=== PATIENT | female | born 1960 | race Caucasian/White ===

== ENCOUNTER 2023-12-13 11:02 | Emergency (ER) | payer SELFPAY ==
--- NOTE | 2023-12-13 11:04 | ED.NAVMDI ---
HPI - Nausea/Vomiting/Diarrhea General Chief complaint: Nausea/Vomiting/Diarrhea Stated complaint: trouble eating,back hurts,throwing up Time Seen by Provider: 12/13/23 11:04 Source: patient Mode of arrival: ambulatory Limitations: no limitations History of Present Illness HPI Narrative: Mei is a 63-year-old female patient presenting to the clinic today with complaints of nausea, vomiting, globus sensation, and low back pain x4 days. She reports she has had about a 20 lb weight loss within the last 3 weeks. Denies any blood in her stool or in her vomit. Denies any abdominal pain. She is a current smoker. History of hypertension and high cholesterol. Is able to tolerate liquids but cannot tolerate solid foods. Emesis has a lot of mucus in it per patient. Related Data Home Medications Medication Instructions Recorded Confirmed amlodipine 10 mg tablet 10 mg PO DAILY 12/13/23 12/13/23 atorvastatin 10 mg tablet 10 mg PO DAILY 12/13/23 12/13/23 losartan 100 mg tablet 100 mg PO DAILY 12/13/23 12/13/23 Allergies Allergy/AdvReac Type Severity Reaction Status Date / Time Penicillins Allergy Unknown Verified 12/13/23 11:23 sertraline [From Zoloft] Allergy Other Verified 12/13/23 11:23 Review of Systems Review of Systems: Pertinent positives per HPI. Patient denies any fever, chills, rash, headache, visual changes, dizziness, cough, runny nose, sore throat, shortness of breath, chest pain, palpitations, nausea, vomiting, diarrhea, constipation, abdominal pain, or any urinary issues. PMFSH Comments At the time of my signature, I reviewed and agree with the nursing past medical, surgical, social, and family history. There is no relevant family history pertinent to the patient complaint. Exam Narrative: General: Well-developed, well nourished, in no apparent distress Head: Normocephalic, atraumatic Mouth: Oropharynx without lesions or masses, MM dry. Neck: Supple, trachea midline, no enlargement of anterior or posterior cervical nodes, no thyroid masses or goiter palpable. Cardio: Regular rate and rhythm, s1 and s2 normal, no murmur appreciated. Resp: Clear to auscultation bilaterally anteriorly and posteriorly, no rhonchi, rales, wheezing or rubs Abdomen: Soft, pliable, bowel sounds present in all quadrants, non-tender to palpation, no organomegly, no CVAT tenderness. Course Course Emergency Course: Portions of this record may have been created with voice recognition software. Level of Care: Express Care Visit Vital Signs Vital signs: Vital signs reviewed Transfer Transfered to: [facility] Transportation: Other (Private car) Transfer rationale: Globus sensation, unintentional weight loss, nausea/vomiting Accepting physician: Dr. Lane Transfer comments: Private car MDM - Nausea/Vomiting/Diarrhea MDM Narrative Medical decision making narrative: At the time of visit patient is resting comfortably on the exam table. Patient appears to be nontoxic. Plan: Due to patient's symptomatology recommend transfer to the ER for further evaluation for labs and CT scan. Patient agreeable to go to the emergency room. Patient would like to be transfer to [facility]. Contacted Dr. Lane at [facility] and she accepts patient for transfer. Patient to be transferred via private car. Differential Diagnosis Differential diagnosis: Likely gastroenteritis, dehydration and other (GERD, Barrettes esophagus, H pylori infection, gastritis, peptic ulcer, gastrointestinal mass with mets) Discharge Plan Discharge Clinical Impression: Globus sensation, Acute nausea with nonbilious vomiting, Unintentional weight loss Patient Disposition: Acute Care Hospital Condition: Stable Prescriptions: No Action atorvastatin 10 mg tablet 10 mg PO DAILY amlodipine 10 mg tablet 10 mg PO DAILY losartan 100 mg tablet 100 mg PO DAILY Follow-up/Referrals: PHYSICIAN,CHANNEL ACCOUNT MANAGER [Primary Care Provider] -
[2023-12-13 11:14] VITALS: BP 131/87; PULSE 77; RESP 16; TEMP 36.8; O2SAT 99
[2023-12-13 11:24] VITALS: BP 131/87; PULSE 77; RESP 16; TEMP 36.8; O2SAT 99
== END 2023-12-13 11:25 | disposition short-term general hospital (02) ==
PROVIDERS: Emergency Provider Nurse Practitioner Family
DX: R09.A2 Foreign body sensation, throat (principal); R11.2 Nausea with vomiting, unspecified; R63.4 Abnormal weight loss; M54.50 Low back pain, unspecified; E78.00 Pure hypercholesterolemia, unspecified; I10 Essential (primary) hypertension
CPT/HCPCS: 99212; G0463

== ENCOUNTER 2023-12-13 11:41 | Emergency (ER) | payer SELFPAY ==
[2023-12-13 11:53] VITALS: BP 120/65; PULSE 77; RESP 16; TEMP 36.4; O2SAT 100
--- NOTE | 2023-12-13 13:35 | PC.NURSE ---
pt stated I am not critical, i can be seen here later ambulated with out of dept
== END 2023-12-13 14:04 | disposition left against medical advice (07) ==
LOC: ANHED 13:52
DX: R13.10 Dysphagia, unspecified (principal)
CPT/HCPCS: 99199

== ENCOUNTER 2023-12-15 11:30 | Observation (INO) | payer SELFPAY ==
[2023-12-15] VITALS (22 sets, daily range): BP systolic 93–135; BP diastolic 54–87; PULSE 61–80; RESP 13–20; TEMP 36.2–36.6; O2SAT 95–100; BMI 19.8
--- NOTE | ~2023-12-15 | CT_ITS ---
EXAMINATION: CT chest abdomen pelvis w con DATE: 12/15/2023 16:57 INDICATION: Lymphoma . TECHNIQUE: Computed tomography (CT) of the chest, abdomen, and pelvis was performed with 100 mL Omnip aque-350 intravenous contrast. Automated exposure control and iterative reconstruction technique were employed. The dose-length product was 316.29 mGy-cm. COMPARISON: CT L-spine, same date FINDINGS: CHEST: Thoracic aorta: No significant dilation. No dissection. Mild arch calcification. Lung parenchyma and airways: 2.3 x 1.2 cm lobulated and spiculated pleural-based nodule in the right upper lobe with mild pleural retraction. 9 mm spiculated nodule along a bronchovascular plane in the right upper lobe. Lungs and airways otherwise clear. Thoracic inlet, axillae and chest wall: No thyroid mass. Enlarged lymph nodes at the inferior neck an d thoracic inlet. Patulous esophagus. Moderate hiatal hernia. Mediastinum: Bulky enlarged mediastinal and hilar lymph nodes. Heart and pericardium: Moderate volume pericardial fluid. Mitral annulus and aortic valve calcificati on. Coronary artery calcifications: Mild. Pleura: No effusion or mass. Thoracic bones: No acute osseous finding in the chest. ABDOMEN/PELVIS: Liver: Enlarged. 8 mm hypodensity in the right liver lobe. Biliary/Gallbladder: Gallbladder is normal. No bile duct dilation. Pancreas: No mass or duct dilation. Spleen: Enlarged Adrenals:9 mm indeterminate density right adrenal nodule. Normal left adrenal. Kidneys: No suspicious mass, obstructing stone, or hydronephrosis. GI tract: Mild distal esophageal and gastric wall edema. No small or large bowel dilation. Normal ti endix. Mesentery/Peritoneum: Enlarged mesenteric nodes. No ascites, mass, or free air. Retroperitoneum: Bulky enlarged retroperitoneal lymph nodes. Atherosclerotic abdominal aortic and/or arterial calcifications. Pelvis: Pelvic organs are within normal limits Soft Tissues: Soft tissues and body wall unremarkable. Abdominopelvic bones: No acute osseous finding in the abdomen/pelvis. IMPRESSION: Lower neck lymphadenopathy. Site in the left lower neck may be amenable to ultrasound-guided percutan eous biopsy. 2.3 x 1.2 cm pleural-based right upper lobe nodule which may be amenable to percutaneous CT guided bi opsy, but could be shielded by the scapula. An additional 9 mm spiculated central lesion is noted in the right upper lobe which may represent scar, a synchronous lesion, or metastatic disease. Mediastinal and bilateral hilar lymphadenopathy. Moderate pericardial effusion. Mild esophagitis/gastritis. Hepatosplenomegaly. 8mm hypodensity in the right liver lobe. 9 mm indeterminate right adrenal lesion. Mesenteric and retroperitoneal lymphadenopathy. Reviewed, dictated and finalized at location K. IMPRESSION: Lower neck lymphadenopathy. Site in the left lower neck may be amenable to ultr asound-guided percutaneous biopsy. 2.3 x 1.2 cm pleural-based right upper lobe nodule which may be amenable to per cutaneous CT guided biopsy, but could be shielded by the scapula. An additional 9 mm spiculated central lesion is noted in the right upper lobe which may repr esent scar, a synchronous lesion, or metastatic disease. Mediastinal and bilateral hilar lymphadenopathy. Moderate pericardial effusion. Mild esophagitis/gastritis. Hepatosplenomegaly. 8mm hypodensity in the right liver lobe. 9 mm indeterminate right adrenal lesion. Mesenteric and retroperitoneal lymphadenopathy.
--- NOTE | ~2023-12-15 | US_ITS ---
EXAMINATION: US biopsy lymph node DATE: 12/16/2023 10:32 INDICATION: Left supraclavicular lymphadenopathy. TECHNIQUE: The procedure including the risks, benefits, and alternatives was discussed with the patie nt. Risks discussed included bleeding and infection. The patient understood the risks and agreed to p roceed. The skin overlying the left neck was prepped and draped in usual sterile fashion. Anesthetic was administered with 1% lidocaine subcutaneously. An 18 gauge core biopsy needle was then used to obtain 6 core biopsy specimens under continuous sonographic guidance. The entry site was cleaned and dressed. There were no immediate complications. FINDINGS: Ultrasound images demonstrate the needle in an enlarged left supraclavicular lymph node. IMPRESSION: 1. Ultrasound-guided core needle biopsy of an enlarged left supraclavicular lymph node. Reviewed, dictated and finalized at location A. IMPRESSION: 1. Ultrasound-guided core needle biopsy of an enlarged left supraclavicular lym ph node.
--- NOTE | ~2023-12-15 | CT_ITS ---
EXAMINATION: CT lumbar spine wo con DATE: 12/15/2023 15:15 INDICATION: Central low back pain TECHNIQUE: Computed tomography (CT) of the lumbar spine was performed without intravenous contrast. A utomated exposure control and iterative reconstruction technique were employed. The dose-length produ ct was 234.54 mGy-cm. COMPARISON: None FINDINGS: 7 likely lumbar dextrocurvature. Sagittal alignment is normal. Vertebral body heights are normal. No fracture. Severe disc height loss at L5-S1. Disc heights are normal. Moderate bilateral sacroiliac os teoarthritis with anatomic variant nonfused bilateral sacral accessory apophyseal centers on the ante rior margin of the bilateral sacroiliac joints. Prominent aortocaval and left para-aortic lymphadenop athy which extends cephalad beyond the wellington of the diaphragm into the inferior mediastinum. For refer ence, one of the infrarenal left para-aortic lymph nodes measures up to 3.3 x 2.2 cm. The following d isc levels are specifically discussed: T11-T12: There is mild left and moderate right facet joint osteoarthritis. There is no neural foramin al stenosis. There is no central canal stenosis. T12-L1: There is mild bilateral facet joint osteoarthritis. There is no neural foraminal stenosis. Th ere is no central canal stenosis. L1-L2: Disc is mildly bulging. There is bilateral facet joint osteoarthritis. There is no neural fora esteban stenosis. There is mild central canal stenosis. L2-L3: Disc is bulging. There is mild bilateral facet joint osteoarthritis. There is mild bilateral n eural foraminal stenosis. There is mild central canal stenosis. L3-L4: Disc is bulging. There is mild bilateral facet joint osteoarthritis. There is mild bilateral n eural foraminal stenosis. There is mild central canal stenosis. L4-L5: Disc is bulging. There is hypertrophy of the ligamentum flavum. There is moderate right and se carmella left facet joint osteoarthritis. There is mild to moderate bilateral neural foraminal stenosis. There is moderate central canal stenosis. L5-S1: Disc is bulging. There is severe bilateral facet joint osteoarthritis. There is moderate bilat eral neural foraminal stenosis. There is no central canal stenosis. IMPRESSION: 1. Bulky or abdominal retroperitoneal lymphadenopathy concerning for lymphoma or other metastatic dis ease. Recommend further evaluation with contrast-enhanced CT of the chest, abdomen and pelvis to asse ss for extent lymphadenopathy and for biopsy planning. 2. Severe lumbosacral and mild lumbar and lower thoracic spondylosis. Reviewed, dictated and finalized at location A. IMPRESSION: 1. Bulky or abdominal retroperitoneal lymphadenopathy concerning for lymphoma o r other metastatic disease. Recommend further evaluation with contrast-enhanced CT of the chest, abdomen and pelvis to assess for extent lymphadenopathy and f or biopsy planning. 2. Severe lumbosacral and mild lumbar and lower thoracic spondylosis.
[2023-12-15 14:08] LABS: Basophils Absolute Auto 0.1 K/mm3 (0.0-0.1); Eosinophils Absolute Auto 0.2 K/mm3 (0-0.3); Eosinophils Percent Auto 2.4 % (0-4.4); Hematocrit 34.6 % (37.0-47.0); Hemoglobin 11.1 g/dL (12.0-15.0); Immature Granulocyte Absolute 0.03 K/mm3 (0.00-0.031); Immature Granulocyte Percent A 0.4 % (0-0.5); Lymphocytes Absolute Auto 0.84 K/mm3 (0.9-3.2); Lymphocytes Percent Auto 10.7 % (18.3-44.2); Mean Corpuscular HGB Conc 32.1 g/dl (32-36); Mean Corpuscular Hemoglobin 26.1 pg (26-34); Mean Corpuscular Volume 81.4 fl (80-100); Mean Platelet Volume 10.3 fl (7.4-10.4); Monocytes Absolute Auto 0.7 K/mm3 (0.1-0.6); Monocytes Percent Auto 8.6 % (2.6-8.5); Neutrophils Percent Auto 76.9 % (45.5-73.1); Platelet Count Result 280 k/mm3 (150-375); Red Blood Count 4.25 M/mm3 (4.2-5.4); Red Cell Distribution Width 14.1 % (11.5-14.5); White Blood Count 7.8 K/mm3 (4.5-10.0)
[2023-12-15 14:13] LABS: Add Urine Microscopic? NO; Appearance Urine Clear (Clear); Bilirubin Urine Negative (Negative); Blood Urine Negative (Negative); Color Urine Yellow (Yellow); Glucose Urine UA Negative (Negative); Ketones Urine Negative (Negative); Leukocyte Esterase Ur Negative LEU/UL (Negative); Nitrate Urine Negative (Negative); Protein Urine Negative (Negative); Urobilinogen Urine 0.2 mg/dL (<2.0)
[2023-12-15 14:31] LABS: Alanine Aminotransferase 15 U/L (6-35); Albumin Level 4.1 g/dL (3.5-5.1); Alkaline Phosphatase 108 U/L (38-126); Anion Gap 13 mmol/L (4-12); Aspartate Amino Transferase 27 U/L (14-36); Bilirubin,Total 0.4 mg/dL (0.2-1.3); Blood Urea Nitrogen 8 mg/dL (7-17); Calcium 8.9 mg/dL (8.4-10.2); Carbon Dioxide 23 mmol/L (22-30); Chloride 99 mmol/L (98-107); Estimated CRCL calculation 67 ml/min; Estimated Glomerular Filt Rate > 60; Glucose 127 mg/dL (65-110); Lipase 109 U/L (23-300); Potassium 3.9 mmol/L (3.4-5.0); Sodium 135 mmol/L (137-145)
[2023-12-15] MEDS: ACETAMINOPHEN 500 MG TABLET 1000 MG PO (15:16)
[2023-12-15] MEDS: KETOROLAC 15 MG/ML VIAL (*BKC) IV PUSH (15:17)
[2023-12-15] MEDS: diazePAM INJ (*CRX) 10 MG/2 ML SYRINGE 5 MG IV PUSH (15:17)
[2023-12-15] MEDS: LIDOCAINE 5% PATCH 1 PATCH TRANSDERM (15:17)
--- NOTE | 2023-12-15 18:12 | ED.GENADULT ---
HPI - General Adult General Chief complaint: Nausea/Vomiting/Diarrhea Stated complaint: nausea and back pain x 6 days Time Seen by Provider: 12/15/23 13:36 History of Present Illness HPI narrative: This is a 63-year-old female presenting ED chief complaint of difficulty swallowing and back pain. Starting 6 days ago she developed difficulty swallowing solids. This associated with nausea and vomiting. She has switched to liquid diet which has improved her symptoms. At the same time she developed achy lower back pain. It is worse with movement. It does not radiate. She has no history of chronic back pain. No history of cancer. No lower extremity weakness, urinary retention, bowel incontinence. Patient has noted recent unintentional weight loss. Related Data Home Medications Medication Instructions Recorded Confirmed amlodipine 10 mg tablet 10 mg PO DAILY 12/13/23 12/13/23 atorvastatin 10 mg tablet 10 mg PO DAILY 12/13/23 12/13/23 losartan 100 mg tablet 100 mg PO DAILY 12/13/23 12/13/23 Allergies Allergy/AdvReac Type Severity Reaction Status Date / Time Penicillins Allergy Unknown Verified 12/15/23 11:36 sertraline [From Zoloft] Allergy Other Verified 12/15/23 11:36 Exam Narrative: APPEARANCE: No apparent distress. Head: atraumatic. EYES: EOMI, NOSE: Atraumatic NECK: Trachea midline, left lower neck mass RESPIRATORY: No increased rate of breathing CTAB CARDIOVASCULAR: RRR, ABDOMINAL: Non-distended soft nontender MUSCULOSKELETAl: No obvious deformities, no midline back pain NEURO: Alert. Cranial nerves 2-12 grossly intact. Sensation light touch, motor function cerebellar function intact for 4 extremities. Gait exam was normal. SKIN:: Warm, dry. Normal color PSYCHIATRIC: Normal affect Course Vital Signs Vital signs: Vital Signs Temperature 97.7 F 12/15/23 11:32 Pulse Rate 80 12/15/23 11:32 Respiratory Rate 16 12/15/23 11:32 Blood Pressure 121/78 12/15/23 11:32 Pulse Oximetry 100 12/15/23 11:32 Oxygen Delivery Room Air 12/15/23 11:32 Temperature 97.9 F 12/15/23 18:01 Pulse Rate 66 12/15/23 18:17 Respiratory Rate 16 12/15/23 18:17 Blood Pressure 125/69 12/15/23 18:17 Pulse Oximetry 98 12/15/23 18:17 Oxygen Delivery Room Air 12/15/23 11:32 Medical Decision Making MDM Narrative Medical decision making narrative: -Course: 63-year-old female presenting with difficulty swallowing and lower back pain. CT of the L-spine was concerning for enlarged lymph nodes. CT chest abdomen pelvis showed multiple areas of lymphadenopathy which be amenable to IR biopsy. Patient be admitted to the hospital for further workup. -DDX includes but is not limited to: Lower back strain, neoplasm, esophageal dysmotility, viral syndrome -Independent interpretation of studies: Labs reviewed. Lower neck lymphadenopathy. Site in the left lower neck may be amenable to ultrasound-guided percutaneous biopsy. 2.3 x 1.2 cm pleural-based right upper lobe nodule which may be amenable to percutaneous CT guided biopsy, but could be shielded by the scapula. An additional 9 mm spiculated central lesion is noted in the right upper lobe which may represent scar, a synchronous lesion, or metastatic disease. Mediastinal and bilateral hilar lymphadenopathy. Moderate pericardial effusion. Mild esophagitis/gastritis. Hepatosplenomegaly. 8mm hypodensity in the right liver lobe. 9 mm indeterminate right adrenal lesion. Mesenteric and retroperitoneal lymphadenopathy. -Discussion of Management/Consultants: Deann -Interventions: Valium, lidocaine, Toradol, Tylenol -Shared decision making / Disposition: Observation Vital Signs Vital Signs: Vital Signs Temperature 97.7 F 12/15/23 11:32 Pulse Rate 80 12/15/23 11:32 Respiratory Rate 16 12/15/23 11:32 Blood Pressure 121/78 12/15/23 11:32 Pulse Oximetry 100 12/15/23 11:32 Oxygen Delivery Room Air 12/15/23 11:32 Temperatu
--- NOTE | 2023-12-15 20:05 | ADMGEN ---
This patient, Mei Carter, was admitted to Medical Room 349-01. Patient/family oriented to hospital policies and general routines including ID bracelet, bed and alarms, visiting hours, pain management, procedures, bathroom and other care routines, personal items, smoking policy, room service/diet, and visiting hours. Information on how to activate the Rapid Response Team has been discussed. Patient/Family are encouraged to report perceived risks to care and to ask questions if they do not understand what they are told or what they should do.
--- NOTE | 2023-12-15 20:35 | PM.IMHP ---
H&P: HPI History of Present Illness Date/Time: 12/15/23 20:35 Chief Complaint: Nausea, vomiting, back pain. Narrative: This is a 63-year-old female smoker with hypertension and hyperlipidemia who presented to the emergency department via private vehicle for evaluation of nausea, vomiting, and back pain. The patient provides the following history. Over the last 3 weeks or so she has been having difficulties swallowing, mainly solid foods which she feels like her getting stuck in her throat. With almost any solid food she vomits almost immediately. She is able to swallow liquids and most soft foods however. She has occasional nausea and has lost about 25 lb in the last 3 to 4 weeks. Additionally she has been having a deep aching pain in the mid low back. She was seen at urgent care 2 days ago for the symptoms and was referred to the ED however the wait was long so she went home. She returned today due to ongoing symptoms. With further questioning she mentions having heartburn for many years but has not suffered with that for at least 5 years. She has never had an endoscopy or colonoscopy. She has not noticed any dark stools or bright red blood in the stools. She has not had any falls or injuries. She also denies fever, chills, sweats, chest pain, pleuritic pain, cough, shortness of breath, abdominal pain, hematemesis, dysuria, and hematuria. In the ED: She was afebrile on arrival with stable vital signs. Labs are significant for WBC count of 7.8, hemoglobin 11.1, sodium 135, total protein 9.0, albumin 4.1. Urinalysis was unremarkable. Lumbar spine CT showed bulky or abdominal retroperitoneal lymphadenopathy and severe lumbosacral and mild lumbar and lower thoracic spondylosis. Subsequent CT of the chest, abdomen, and pelvis showed lower neck lymphadenopathy, 2.3 x 1.2 cm pleural based right upper lobe nodule, 9 mm spiculated central lesion in the right upper lobe, mediastinal bilateral hilar lymphadenopathy, moderate pericardial effusion, mild esophagitis/gastritis, hepatosplenomegaly, mesenteric and retroperitoneal lymphadenopathy, 8 mm hypodensity in the right liver lobe, 9 mm indeterminate right adrenal lesion. She is being admitted in this setting for further workup. Review of Systems Review of Systems: 12 systems were reviewed and are negative except for as per HPI. [facility] Past Medical History Medical History (Updated 12/15/23 @ 23:38 by Selena Stephens PA-C) Depression with anxiety Hyperlipidemia Hypertension Tobacco dependence Surgical History Surgical History (Updated 12/15/23 @ 20:43 by Selena Stephens PA-C) History of surgical removal of ganglion cyst Left wrist. Family History Family History Unknown Hypertension Father Diabetes mellitus Mother Diabetes mellitus Kidney failure Sibling Diabetes mellitus Social History Social History (Updated 12/15/23 @ 20:44 by Selena Stephens PA-C) Social History: Surrogate medical decision maker: Lavellsully Carter, spouse. Code status: Full code. Smoking packs per day: 1 Smoking cigarettes per day: 20.0 Years smoked: 40 Smoking pack-years: 40.00 Smoking status: Current every day smoker Tobacco type: cigarettes Alcohol intake: current Drinks per week: 5 Substance use type: does not use Do You Feel Safe in your Home?: Yes Lack of Transportation: No Lack of Food: Never True Current Housing: I Do Not Have Housing Concerned About Future Housing: No Difficulty Paying Gas/Electric Bills: No Difficulty Paying for Meds: No Currently Unemployed: No Education: High School Diploma/GED Difficulty w/ Childcare or Family Care: No Spiritual care concerns: No Meds Home Medications and Allergies Home Medications Medication Instructions Recorded Confirmed Type amlodipine 10 mg tablet 10 mg PO HS 12/13/23 12/15/23 History atorvastatin 10 mg tablet 10 mg PO 12/13/23
[2023-12-15] MEDS: LACTATED RINGERS 1,000 ML 75 ML IV CONT (21:28)
[2023-12-15] MEDS: ATORVASTATIN 10 MG TABLET PO (21:29)
[2023-12-15] MEDS: amLODIPine BESYLATE 10 MG TABLET PO (21:29)
[2023-12-15] MEDS: HYDROcodone/acetaminophen (*CRX) 5-325 MG TABLET 1 TAB PO (21:31)
[2023-12-15 21:50] LABS: Mean Platelet Volume 10.1 fl (7.4-10.4); Platelet Count Result 255 k/mm3 (150-375)
[2023-12-15 22:02] LABS: INR 1.1; Partial Thromboplastin Time 33.7 Seconds (22.3-36.8); Prothrombin Time 14.8 Seconds (11.1-14.7)
--- NOTE | 2023-12-16 | ECHO_ITS ---
Patient Info Name: Mei Carter Age: 63 years : 1960 Gender: Female Ht: 68 in Wt: 130 lbs BSA: 1.68 m2 HR: 62 bpm BP: 109 / 70 mmHg Technical Quality: Fair Exam Date: 12/16/2023 11:35 AM Exam Location: Echo Lab Patient Status: Inpatient Admit Date: 12/15/2023 Staff Ordering Physician: Cait Gaffney APRN Cardiology Fellow: Renetta Mccauley RDCS Attending Provider: Mark Liu MD Referring Physician: Gulshan RUIZ; Exam Type: CA echo doppler color flow Study Info Indications I31.3 - Pericardial effusion (noninflammatory) Complete two-dimensional, color flow and Doppler transthoracic echocardiogram is performed. Summary 1. Left ventricular chamber dimension is normal. 2. Left ventricular systolic function is normal, estimated at 65-70%. 3. The left ventricular diastolic function is grade I diastolic dysfunction. 4. Right ventricular systolic function is normal. 5. Left atrial chamber dimension is mildly enlarged. 6. There is moderate aortic valve calcification. 7. There is mild aortic valve stenosis. 8. There is mild aortic valve regurgitation. 9. There is mild mitral valve regurgitation. 10. There is mild tricuspid valve regurgitation. 11. There is small circumferential pericardial effusion. No echocardiographic evidence of tamponade. Left Ventricle Left ventricular chamber dimension is normal. Left ventricular systolic function is normal, estimated at 65-70%. There is no increased left ventricular wall thickness. The left ventricular diastolic function is grade I diastolic dysfunction. Right Ventricle Right ventricular chamber dimension is normal. Right ventricular systolic function is normal. Left Atria Left atrial chamber dimension is mildly enlarged. Right Atria Right atrial chamber dimension is normal. Atrial Septum Intact interatrial septum visualized by color flow imaging. Aortic Valve The aortic valve is probable trileaflet. There is mild aortic valve stenosis. There is mild aortic valve regurgitation. There is moderate aortic valve calcification. Pulmonic Valve The pulmonic valve is not well visualized. There is no pulmonic regurgitation. Mitral Valve There is mild mitral valve regurgitation. The mitral valve annulus is moderately calcified. Tricuspid Valve There is mild tricuspid valve regurgitation. Pericardium/Pleural There is small circumferential pericardial effusion. No echocardiographic evidence of tamponade. Inferior Vena Cava Normal inferior vena cava with >50% collapse upon inspiration consistent with normal right atrial pressure, 3 mmHg. Aorta The aortic root size at the sinus of Valsalva is normal. Left Ventricular Outflow Tract Name Value Normal LVOT 2D LVOT Diameter 2.1 cm LVOT Doppler LVOT Peak Gradient 14 mmHg LVOT Mean Gradient 7 mmHg LVOT VTI 41 cm LVOT VTI/AV VTI Ratio 0.6 LVOT Stroke Volume 139 ml LVOT CO 8.4 l/min LVOT CI 5.0 l/min/m2 Pulmonic Valve
[2023-12-16 05:53] LABS: Hemoglobin 10.4 g/dL (12.0-15.0); Mean Corpuscular HGB Conc 30.6 g/dl (32-36); Mean Corpuscular Hemoglobin 25.2 pg (26-34); Mean Corpuscular Volume 82.5 fl (80-100); Mean Platelet Volume 10.5 fl (7.4-10.4); Platelet Count Result 254 k/mm3 (150-375); Red Blood Count 4.12 M/mm3 (4.2-5.4); White Blood Count 6.6 K/mm3 (4.5-10.0)
[2023-12-16 06:03] LABS: INR 1.1; Prothrombin Time 14.3 Seconds (11.1-14.7)
[2023-12-16 06:04] LABS: Anion Gap 10 mmol/L (4-12); Blood Urea Nitrogen 8 mg/dL (7-17); Calcium 9.1 mg/dL (8.4-10.2); Carbon Dioxide 23 mmol/L (22-30); Chloride 103 mmol/L (98-107); Estimated CRCL calculation 65 ml/min; Estimated Glomerular Filt Rate > 60; Glucose 116 mg/dL (65-110); Magnesium 2.1 mg/dL (1.6-2.3); Partial Thromboplastin Time 33.8 Seconds (22.3-36.8); Potassium 3.9 mmol/L (3.4-5.0); Sodium 136 mmol/L (137-145)
[2023-12-16 06:09] VITALS: BP 109/70; PULSE 62; RESP 18; TEMP 36.7; O2SAT 96
[2023-12-16 08:00] VITALS: O2SAT 98
--- NOTE | 2023-12-16 08:21 | WPDGICN ---
Assessment and Plan Assessment and plan (1) Dysphagia: Code(s): R13.10 - Dysphagia, unspecified Status: Acute (2) Weight loss: Code(s): R63.4 - Abnormal weight loss Status: Acute (3) Pericardial effusion: Code(s): I31.39 - Other pericardial effusion (noninflammatory) Status: Acute (4) Hyperlipidemia: Code(s): E78.5 - Hyperlipidemia, unspecified Status: Acute (5) Hypertension: Code(s): I10 - Essential (primary) hypertension Status: Acute (6) Lymphadenopathy: Code(s): R59.1 - Generalized enlarged lymph nodes Status: Acute (7) Pleural nodule: Code(s): R22.2 - Localized swelling, mass and lump, trunk Status: Acute (8) Depression with anxiety: Code(s): F41.8 - Other specified anxiety disorders Status: Acute (9) Tobacco dependence: Code(s): F17.200 - Nicotine dependence, unspecified, uncomplicated Status: Acute (10) Liver mass: Code(s): R16.0 - Hepatomegaly, not elsewhere classified Status: Acute Plan 1. Dysphagia/ Nausea / Vomiting/ Weight Loss/Lymphadenopathy: Symptoms started 3-4 weeks ago. Reports food getting stuck in the suprasternal notch requiring regurgitation. Eating soft foods for the past 5-6 days. 25-pound weight loss over 2-[address] chest shows mild esophagitis/gastritis. She also has lower neck lymphadenopathy, mediastinal and bilateral hilar lymphadenopathy, hepatic splenomegaly, 8 mm hypodensity in the right liver lobe, pleural nodules. Never has had EGD or Colonoscopy. Due to lymphadenopathy there is planned today for ultrasound-guided biopsy of the lymphadenopathy in her neck. Dr. Kurtz with oncology has also been consulted for his input. - EGD to be arranged to assess for any underlying malignancy, strictures, rings, esophagitis. Will plan on doing EGD tomorrow - will start her on pantoprazole 40 mg IV daily - Consider Colonoscopy tomorrow with EGD? - Await Dr. Kurtz's recs as well GI Consult Note Consult date/time: 12/16/23 08:21 Reason for consult: Dysphagia HPI: This is a pleasant 63 year old female with a past medical surgical history of hyperlipidemia, hypertension, depression, anxiety, tobacco dependence, and left ganglion cyst removal x 2. She presented to the ER room 12/15/2023 with complaints of difficulty swallowing and back pain. GI consulted for difficulty swallowing. She reports difficulty swallowing solids for the past 3-4 weeks with associated nausea and vomiting. She denies any prior history of dysphagia. She has been eating soft foods like pudding for the past 5-6 days. She reports the food gets stuck in her suprasternal notch and she has to throw it up. She denies any progressive worsening of symptoms or odynophagia. She is able to swallow her saliva without difficulty. She reports a history of heartburn during that resolved spontaneously. She denies any atypical signs of heartburn like chronic cough, belching or globus sensation. She reports a 25-pound weight loss over the past 2-3 weeks. She denies any bowel habit changes, hematochezia, melena or hematemesis. She denies any family history of GI malignancies. She has never had an EGD or Colonoscopy. She also reports low back pain that started 6 days ago. She denies any night sweats or fevers. She denies any recent travel. She denies any chest pain or shortness of breath. ENDOSCOPY HISTORY: EGD: No prior EGD COLONOSCOPY: No prior colonoscopy LABS AND STOOL STUDIES: Na 135, K 3.9, BUN 8, creatinine 0.70, GFR >60 WBC 7.8, HGB 11.1, HCT 34.6, MCV 81.4, platelets 280, INR not available Total bilirubin not available, AST 27, ALT 15, alkaline phosphatase 108 Lipase 109 No recent stool studies available at today's visit IMAGING: CT chest abdomen pelvis w contrast 12/15/2023: Lower neck lymphadenopathy amenable to ultrasound-guided percutaneous
[2023-12-16 08:45] LABS: Iron 42 ug/dL (37-170)
[2023-12-16 08:54] LABS: Percent Iron Saturation 12 % (20-50)
--- NOTE | 2023-12-16 09:28 | PDONCCN ---
HPI - Date of Consult Date/Time: 12/16/23 17:02 <Rickie Kurtz - 12/16/23 17:04> 12/16/23 09:28 <Vania Rodriguez - 12/16/23 09:30> Requesting Physician: Mark Liu MD <Rickie Kurtz - 12/16/23 17:04> Mark Liu MD <Vania Rodriguez - 12/16/23 09:30> Primary Care Provider: UNKNOWN,DOCTOR <Rickie Kurtz - 12/16/23 17:04> UNKNOWN,DOCTOR <Vania Rodriguez - 12/16/23 09:30> - Consult Narrative Reason for consult: Lymphadenopathy <Vania Rodriguez - 12/16/23 09:30> Narrative: Mei Carter is a 63 year old female <Rickie Kurtz - 12/16/23 17:04> Mei Carter is a 63 year old female with a past medical history of HTN, HLD, who was admitted to the hospital after worsening back pain and n/v and unable to eat solid foods for about 3-4 weeks. She reports about a 25lb weight loss over the last 3 weeks d/t unable to swallow whole foods as they get stuck. She denies any fevers, chills, night sweats, shortness of breath, or fatigue. CT Abd/Pelvis shows extensive lymphadenopathy in the lower neck, mediastinal/hilar, and mesenteric and retroperitoneal areas, as well as nodules in her RUL and liver, with hepatosplenomegaly. Patient reports a smoking history of 1ppd for the last 40+ years. She has never had a colonoscopy/endoscopy before. She is not up to date on mammogram either. She denies any personal or familial history of malignancy. Labs today are notable for WBC 6.6, Hgb 10.4 Hct 34 Plt 254 Cr 0.70 <Vania Rodriguez - 12/16/23 09:39> Review of Systems - Review of Systems All systems reviewed & are unremarkable except as noted in HPI and bel <JenniferVania 12/16/23 09:39> [facility] Medical History: Medical History (Last Updated 12/15/23 @ 20:43 by Selena Stephens PA-C) Depression with anxiety Hyperlipidemia Hypertension Tobacco dependence <Rickie Kurtz. - 12/16/23 17:04> Medical History (Last Updated 12/15/23 @ 20:43 by Selena Stephens PA-C) Depression with anxiety Hyperlipidemia Hypertension Tobacco dependence <Vania Rodriguez - 12/16/23 09:30> Surgical History: Surgical History (Last Updated 12/15/23 @ 20:43 by Selena Stephens PA-C) History of surgical removal of ganglion cyst Left wrist. <Rickie Kurtz. - 12/16/23 17:04> Surgical History (Last Updated 12/15/23 @ 20:43 by Selena Stephens PA-C) History of surgical removal of ganglion cyst Left wrist. <RemisherriNarinderVania - 12/16/23 09:30> Family History: Family History (Last Reviewed 12/15/23 @ 20:42 by Selena Stephens PA-C) Unknown Hypertension Father Diabetes mellitus Mother Diabetes mellitus Kidney failure Sibling Diabetes mellitus <Rickie Kurtz. - 12/16/23 17:04> Family History (Last Reviewed 12/15/23 @ 20:42 by Selena Stephens PA-C) Unknown Hypertension Father Diabetes mellitus Mother Diabetes mellitus Kidney failure Sibling Diabetes mellitus <RemisherriNarinderVania - 12/16/23 09:30> - Social History Social History: Social History (Last Updated 12/15/23 @ 20:44 by Selena Stephens PA-C) Alcohol Use: Alcohol intake: current Drinks per week: 5 Substance Use: Substance use type: does not use Others: Spiritual care concerns: No Smoking Status: Smoking status: Current every day smoker Tobacco type: cigarettes Smoking Pack-years: Smoking packs per day: 1 Smoking cigarettes per day: 20.0 Years smoked: 40 Smoking pack-years: 40.00 Social Determinants of Health: Do You Feel Safe in your Home?: Yes Has the Lack of Transportation Kept You From Medical Appointments or From Getting Medications?: No Within the Past 12 Months, Were You Worried Whether Your Food Would Run Out Before You Got Money to Buy More?: Never True What is Your Housing Situation Today?: I Do Not H
[2023-12-16] MEDS: LOSARTAN POTASSIUM 100 MG TABLET PO (09:33)
[2023-12-16] MEDS: PANTOPRAZOLE SODIUM IV 40 MG VIAL IV PUSH (09:34)
[2023-12-16] MEDS: MORPHINE SULFATE (*CRX) 2 MG/ML INJ IV PUSH (09:34)
[2023-12-16 09:55] LABS: Folic Acid 7.8 ng/mL (2.76->20); Vitamin B12 > 1000.0 pg/mL (239-931)
[2023-12-16] MEDS: HYDROcodone/acetaminophen (*CRX) 5-325 MG TABLET 1 TAB PO ×2 (11:02→18:33)
[2023-12-16] MEDS: LACTATED RINGERS 1,000 ML 75 ML IV CONT (11:06)
[2023-12-16 13:21] VITALS: BMI 19.8
[2023-12-16 14:00] VITALS: BP 101/64; PULSE 72; RESP 14; TEMP 36.9; O2SAT 98
--- NOTE | 2023-12-16 14:23 | PM.IMPN ---
Progress Note: A&P Assessment and Plan (1) Lymphadenopathy: Code(s): R59.1 - Generalized enlarged lymph nodes Status: Acute Assessment and Plan: 12/16/23: CT of the abdomen chest pelvis with contrast showed lower neck lymphedema Pap be, 2.3 x 1.2 cm pleural based right upper lobe nodule, 9 mm spiculated central lesion noted in the right upper lobe, mediastinal and bilateral hilar lymphadenopathy, moderate pericardial effusion, mild esophagitis/gastritis, hepatic splenomegaly, 8 mm hypodensity in the right liver lobe, 9 mm indeterminate right adrenal lesion, mesenteric and retroperitoneal lymphadenopathy Patient sent for an ultrasound-guided lymph node biopsy today Hematology-Oncology consulted (2) Pleural nodule: Code(s): R22.2 - Localized swelling, mass and lump, trunk Status: Acute Assessment and Plan: 12/16/23: 2.3 x 1.2 cm lobulated and spiculated pleural based nodule in the right upper lobe with mild pleural retraction, 9 mm spiculated nodule long a bronchovascular plane in the right upper lobe ? Metastatic disease Current every day smoker, 1 pack per day (3) Liver mass: Code(s): R16.0 - Hepatomegaly, not elsewhere classified Status: Acute Assessment and Plan: 12/16/23: 8 mm hypodensity in the right liver lobe seen on chest abdomen pelvis CT ? Metastatic disease (4) Dysphagia: Code(s): R13.10 - Dysphagia, unspecified Status: Acute Assessment and Plan: 12/16/23: Patient having difficulty swallowing due to lymphadenopathy GI consulted and will take patient for EGD tomorrow Started on Protonix (5) Weight loss: Code(s): R63.4 - Abnormal weight loss Status: Acute Assessment and Plan: 12/16/23: Reporting nausea and vomiting for the last several weeks often on with a 25 lb weight loss in the last 3-4 weeks mainly due to solid food getting stuck in her throat which makes her vomit almost immediately. (6) Pericardial effusion: Code(s): I31.39 - Other pericardial effusion (noninflammatory) Status: Acute Assessment and Plan: 12/16/23: CT of abdomen pelvis and chest showing moderate pericardial effusion Echo showing normal LV systolic function with an estimated EF of 65-70%, grade 1 diastolic dysfunction, moderate aortic valve calcification, small circumferential pericardial effusion with no evidence of tamponade. (7) Anemia: Code(s): D64.9 - Anemia, unspecified Status: Acute Assessment and Plan: 12/16/23: Hemoglobin 10.4, MCV 82.5, RDW 14.0, iron 42, ferritin 88.10, vitamin B12 greater than a 1000, folate 7.8 Hematology/oncology following (8) Hypertension: Code(s): I10 - Essential (primary) hypertension Status: Chronic Assessment and Plan: 12/16/23: Blood pressure ranging 109/65 to 135/71 Continue amlodipine and losartan Time Spent With Patient Time with patient: Greater than 35 minutes Subjective Date/time seen: 12/16/23 14:23 Interval history: Interval history: This is a 63-year-old female who presented to the hospital on 12/15/2023 with nausea, vomiting, back pain. Workup in the hospital included a lumbar spine CT which showed bulky or abdominal retroperitoneal lymphadenopathy concerning for lymphoma or other metastatic disease, several lumbosacral and mild lumbar and lower thoracic spondylosis, bulging disc in L1-L2, L2-L3, L3-L4, L4-L5, L5-S1. CT of chest abdomen pelvis with contrast showed a lower neck lymphedema happy, 2.3 x 1.2 cm pleural based right upper lobe nodule which may be amendable to CT-guided biopsy, mediastinal and bilateral hilar lymphadenopathy, moderate pericardial effusion, mild esophagitis/gastritis, hepato splenomegaly, 8 mm hypodensity in the right liver lobe, 9 mm indeterminate right adrenal lesion, mesenteric and retroperitoneal lymphadenopathy. Initial labs showed a normal white blood cell count of 7.8, hemoglobin 11.1, INR 1.1, sodium 135,
[2023-12-16] MEDS: BISACODYL 5 MG TABLET EC 20 MG PO (18:13)
[2023-12-16] MEDS: polyethylene glycoL 3350 238 GM BOTTLE PO (18:13)
[2023-12-16 20:00] VITALS: PULSE 67
[2023-12-16] MEDS: ONDANSETRON INJ 4 MG/2 ML VIAL IV PUSH (20:12)
[2023-12-16] MEDS: ATORVASTATIN 10 MG TABLET PO (21:34)
[2023-12-16 22:06] VITALS: BP 125/79; PULSE 69; RESP 16; TEMP 36.8; O2SAT 94
[2023-12-16] MEDS: amLODIPine BESYLATE 10 MG TABLET PO (22:33)
[2023-12-17] VITALS (8 sets, daily range): BP systolic 83–112; BP diastolic 53–66; PULSE 61–83; RESP 16–26; TEMP 36.2–36.4; O2SAT 94–98
[2023-12-17] MEDS: MAGNESIUM CITRATE 300 ML BTL PO (02:06)
[2023-12-17] MEDS: ONDANSETRON INJ 4 MG/2 ML VIAL IV PUSH ×2 (02:06→10:28)
[2023-12-17] MEDS: HYDROcodone/acetaminophen (*CRX) 5-325 MG TABLET 1 TAB PO ×3 (03:58→16:20)
[2023-12-17 05:49] LABS: Basophils Absolute Auto 0.1 K/mm3 (0.0-0.1); Basophils Percent Auto 0.8 % (0.2-1.2); Eosinophils Absolute Auto 0.3 K/mm3 (0-0.3); Hematocrit 34.4 % (37.0-47.0); Hemoglobin 10.6 g/dL (12.0-15.0); Immature Granulocyte Absolute 0.02 K/mm3 (0.00-0.031); Immature Granulocyte Percent A 0.3 % (0-0.5); Lymphocytes Absolute Auto 0.85 K/mm3 (0.9-3.2); Lymphocytes Percent Auto 11.4 % (18.3-44.2); Mean Corpuscular HGB Conc 30.8 g/dl (32-36); Mean Corpuscular Hemoglobin 25.5 pg (26-34); Mean Corpuscular Volume 82.7 fl (80-100); Mean Platelet Volume 10.5 fl (7.4-10.4); Monocytes Absolute Auto 0.6 K/mm3 (0.1-0.6); Monocytes Percent Auto 8.6 % (2.6-8.5); Neutrophils Absolute Auto 5.6 K/mm3 (1.3-6.7); Neutrophils Percent Auto 74.9 % (45.5-73.1); Platelet Count Result 272 k/mm3 (150-375); Red Blood Count 4.16 M/mm3 (4.2-5.4); Red Cell Distribution Width 13.9 % (11.5-14.5); White Blood Count 7.5 K/mm3 (4.5-10.0)
[2023-12-17 06:05] LABS: Alanine Aminotransferase 15 U/L (6-35); Albumin Level 4.2 g/dL (3.5-5.1); Alkaline Phosphatase 100 U/L (38-126); Anion Gap 14 mmol/L (4-12); Aspartate Amino Transferase 26 U/L (14-36); Bilirubin,Total 0.3 mg/dL (0.2-1.3); Blood Urea Nitrogen 5 mg/dL (7-17); Calcium 9.5 mg/dL (8.4-10.2); Carbon Dioxide 17 mmol/L (22-30); Chloride 105 mmol/L (98-107); Estimated CRCL calculation 65 ml/min; Estimated Glomerular Filt Rate > 60; Glucose 148 mg/dL (65-110); Potassium 3.7 mmol/L (3.4-5.0); Sodium 136 mmol/L (137-145)
[2023-12-17] MEDS: LOSARTAN POTASSIUM 100 MG TABLET PO (08:14)
[2023-12-17] MEDS: PANTOPRAZOLE SODIUM IV 40 MG VIAL IV PUSH (08:14)
--- NOTE | 2023-12-17 08:17 | P.CDI_ITS ---
CDI Query Clarification Request BMI: 19.8 Nutritional Diagnostic Statement: Severe protein calorie malnutrition related to difficulty swallowing, acute medical condition as evidenced by intakes <75% needs >1 month; weight loss (self reported) 13%/2 months; moderate muscle wasting and fat loss. Please refer to the comprehensive nutrition assessment for further information. If you agree with the diagnosis of protein calorie malnutrition. Please specify severity of malnutrition if known: * Mild * Moderate * Severe * Other/Unknown <Noemy Frost RN - Last Filed: 12/17/23 08:19> Clarified Diagnosis Clarified Diagnosis: severe <Cait Gaffney APRN - Last Filed: 12/17/23 15:53>
--- NOTE | 2023-12-17 12:49 | WPDANESEPPF ---
Anes - Initial Pre Proc Eval Procedure: Operation Date: 12/17/23 12:00 Proposed Procedures p Esophagogastroduodenoscopy & Colonoscopy - Jerry Mays MD Date/Time: 12/17/23 12:49 Surgeon: Mark Liu MD Pre Op Diagnosis: Lymphadenopathy Patient Data Age: 63 Gender: F Height: 1.73 m Weight: 59 kg Last Vital Signs Temp 97.5 F L 12/17/23 11:48 Pulse 83 12/17/23 11:48 Resp 16 12/17/23 11:48 BP 104/66 12/17/23 11:48 Pulse Ox 98 12/17/23 11:48 O2 Del Method Room Air 12/17/23 11:48 Allergies Allergy/AdvReac Type Severity Reaction Status Date / Time Penicillins Allergy Unknown Verified 12/17/23 11:43 sertraline [From Zoloft] Allergy Other Verified 12/17/23 11:43 Home Medications Medication Instructions Recorded Confirmed Type amlodipine 10 mg tablet 10 mg PO HS 12/13/23 12/15/23 History atorvastatin 10 mg tablet 10 mg PO HS 12/13/23 12/15/23 History losartan 100 mg tablet 100 mg PO DAILY 12/13/23 12/15/23 History cholecalciferol (vitamin D3) 25 25 mcg PO DAILY 12/15/23 12/15/23 History mcg (1,000 unit) chewable tablet (Vitamin D3) cyanocobalamin (vitamin B-12) 250 250 mcg PO DAILY 12/15/23 12/15/23 History mcg tablet (Vitamin B-12) [id number] 8 mg-folic 400 1 tablet PO DAILY 12/15/23 12/15/23 History mcg-K 50 mcg-lutein 300 mcg tablet (Century Women 50 Plus) vitamin E 400 unit tablet 180 mg PO DAILY 12/15/23 12/15/23 History hydrocodone 5 mg-acetaminophen 325 1 tablet PO Q6H PRN Pain Rated 4-6 12/17/23 Rx mg tablet #40 tabs Laboratory Tests 12/17/23 05:28 WBC 7.5 K/mm3 (4.5-10.0) RBC 4.16 L M/mm3 (4.2-5.4) Hgb 10.6 L g/dL (12.0-15.0) Hct 34.4 L % (37.0-47.0) MCV 82.7 fl (80-100) MCH 25.5 L pg (26-34) MCHC 30.8 L g/dl (32-36) RDW 13.9 % (11.5-14.5) Plt Count 272 k/mm3 (150-375) MPV 10.5 H fl (7.4-10.4) Immature Gran % (Auto) 0.3 % (0-0.5) Neut % (Auto) 74.9 H % (45.5-73.1) Lymph % (Auto) 11.4 L % (18.3-44.2) [place] % (Auto) 8.6 H % (2.6-8.5) Eos % (Auto) 4.0 % (0-4.4) Baso % (Auto) 0.8 % (0.2-1.2) Lymph # (Auto) 0.85 L K/mm3 (0.9-3.2) [place] # (Auto) 0.6 K/mm3 (0.1-0.6) Eos # (Auto) 0.3 K/mm3 (0-0.3) Baso # (Auto) 0.1 K/mm3 (0.0-0.1) Abs Immat Gran (auto) 0.02 K/mm3 (0.00-0.031) Absolute Neuts (auto) 5.6 K/mm3 (1.3-6.7) Absolute Nucleated RBC 0.000 K/mm3 (0.0-0.012) Nucleated RBC % 0.0 % (0.0-0.2) Sodium 136 L mmol/L (137-145) Potassium 3.7 mmol/L (3.4-5.0) Chloride 105 mmol/L (98-107) Carbon Dioxide 17 L mmol/L (22-30) Anion Gap 14 H mmol/L (4-12) BUN 5 L mg/dL (7-17) Creatinine 0.70 mg/dL (0.7-1.0) Estim Creat Clear Calc 65 ml/min Estimated GFR > 60 (59 - ) Glucose 148 H mg/dL (65-110) Calcium 9.5 mg/dL (8.4-10.2) Total Bilirubin 0.3 mg/dL (0.2-1.3) AST 26 U/L (14-36) ALT 15 U/L (6-35) Alkaline Phosphatase 100 U/L (38-126) Total Protein 9.0 H g/dL (6.3-8.2) Albumin 4.2 g/dL (3.5-5.1) Patient hx anesthesia problems: none Family hx anesthesia problems: none Results Review: All pre-operative results and documents have been reviewed as part of the pre-operative evaluation. [facility] Past Medical History Medical History Depression with anxiety Hyperlipidemia Hypertension Tobacco dependence Surgical History Surgical History History of surgical removal of ganglion cyst Left wrist. Family History Family History Unknown Hypertension Father Diabetes mellitus Mother Diabetes mellitus Kidney failure Sibling Diabetes mellitus Social History Social History (Reviewed 12/17/23 @ 12:49 by
[2023-12-17] MEDS: BENZOCAINE (*SP) 60 ML SPRAY CAN (HURRICAINE) 1 SPRAY MUCOUS MEM (12:56)
--- NOTE | 2023-12-17 13:07 | SUR.OPER ---
EGD start 1257, EGD end 1302. Colonoscopy start 1307.
[2023-12-17] MEDS: LACTATED RINGERS 1,000 ML 150 ML IV CONT (13:22)
--- NOTE | 2023-12-17 15:53 | PM.DS ---
DS: Admitting Diagnosis Discharge Date 12/17/23 Admitting Diagnosis Pleural nodule Dysphagia lymphadenopathy Weight loss Pericardial effusion Hypertension Hyperlipidemia Tobacco dependent DS: Summary Hospital Course Reason for hospitalization: Pleural nodule Dysphagia lymphadenopathy Weight loss Pericardial effusion Hypertension Hyperlipidemia Tobacco dependent Hospital Course: This is a 63-year-old female who presented to the hospital on 12/15/2023 with nausea, vomiting, back pain. Workup in the hospital included a lumbar spine CT which showed bulky or abdominal retroperitoneal lymphadenopathy concerning for lymphoma or other metastatic disease, several lumbosacral and mild lumbar and lower thoracic spondylosis, bulging disc in L1-L2, L2-L3, L3-L4, L4-L5, L5-S1. CT of chest abdomen pelvis with contrast showed a lower neck lymphedema happy, 2.3 x 1.2 cm pleural based right upper lobe nodule which may be amendable to CT-guided biopsy, mediastinal and bilateral hilar lymphadenopathy, moderate pericardial effusion, mild esophagitis/gastritis, hepato splenomegaly, 8 mm hypodensity in the right liver lobe, 9 mm indeterminate right adrenal lesion, mesenteric and retroperitoneal lymphadenopathy. Initial labs showed a normal white blood cell count of 7.8, hemoglobin 11.1, INR 1.1, sodium 135, anion gap 13. UA was obtained and was negative. Echocardiogram performed today showed normal LV systolic function with an estimated EF of 65-70%, grade 1 diastolic dysfunction, moderate aortic valve calcification, small circumferential pericardial effusion no evidence of tamponade. On 12/16/2023 patient went and had a lymph node biopsy with ultrasound guidance. Lymph node was sent off for pathology. On 12/17/2023 patient went for EGD and was found to have a protruding friable fungating circumferential ulcerated infiltrative mass in the distal esophagus concerning for malignancy which is about 7 cm long. Biopsy was was taken during the EGD and sent off for pathology. Patient is able to eat and drink and GI had signed off. Patient will need to follow up with Oncology and with GI in about a week for biopsy results. Final diagnosis: Pleural nodule, esophageal mass,Lymphadenopathy Status at Discharge Cognitive/behavioral status at discharge: Alert oriented x3 Functional status at discharge: independent ambulation Overall status at discharge: patient is progressing back to baseline Time Spent with Patient Time attestation: Total time spent providing and/or coordinating discharge services: Time spent: Greater than 30 minutes Exam Narrative: General: In no acute distress, malnourished Neck: cervical adenopathy Cardiac: Normal S1 and S2. Murmur noted. No gallops or friction rubs, peripheral pulses intact. Respiratory: Lungs clear to auscultation, no adventitious lung sounds, currently on room air Gastrointestinal: soft, non-distended, non-tender, normoactive bowel sounds. Dysphasia : voiding without difficulty. Neuro: Alert and oriented x4 DS: Data Data Completed and Pending Completed studies during hospitalization: Lymph node biopsy ultrasound Chest/abdomen/pelvis CT Lumbar spine CT Pending studies at discharge: Pending at discharge 12/16/23 10:29 Surgical [PTH] Routine 12/17/23 13:23 Surgical [PTH] Routine Labs on day of discharge: Labs from last 24 hours 12/17/23 05:28 WBC 7.5 RBC 4.16 L Hgb 10.6 L Hct 34.4 L MCV 82.7 MCH 25.5 L MCHC 30.8 L RDW 13.9 Plt Count 272 MPV 10.5 H Immature Gran % (Auto) 0.3 Neut % (Auto) 74.9 H Lymph % (Auto) 11.4 L [place] % (Auto) 8.6 H Eos % (Auto) 4.0 Baso % (Auto) 0.8 Lymph # (Auto) 0.85 L [place] # (Auto) 0.6 Eos # (Auto) 0.3 Baso # (Auto) 0.1 Abs Immat Gran (auto) 0.02 Absolute Neuts (auto) 5.6 Absolute Nucleated RBC 0.000 Nucleated RBC % 0.0 Sodium 136 L Potassium 3.7 Chloride 105 Carbon Dioxide 17 L Anion Gap 14 H BUN 5 L Creatinine
[2023-12-19 02:29] LABS: Methylmalonic Acid 124 nmol/L (69-390)
[2023-12-22 14:48] LABS: Soluble Transferrin Receptor 2.01 mg/L (0.76-1.76)
== END 2023-12-17 16:40 | disposition home or self-care (01) ==
LOC: ANHED 18:19 → ANH3MED 19:42
PROVIDERS: Internal Medicine Gastroenterology; Nurse Practitioner Acute Care; Nurse Practitioner Family; Physician Assistant; Admitting Provider General Practice; Emergency Provider Emergency Medicine; Visit Provider General Practice
PROC: 0DJ08ZZ Inspection of Upper Intestinal Tract, Via Natural or Artificial Opening Endoscopic (ICD-10-PCS; CPT 43235; principal; 2023-12-17 12:00)
DX: C15.5 Malignant neoplasm of lower third of esophagus (principal); C77.0 Secondary and unspecified malignant neoplasm of lymph nodes of head, face and neck; R91.1 Solitary pulmonary nodule; D12.3 Benign neoplasm of transverse colon; D12.8 Benign neoplasm of rectum; R63.4 Abnormal weight loss; R16.0 Hepatomegaly, not elsewhere classified; I31.39 Other pericardial effusion (noninflammatory); D64.9 Anemia, unspecified; K64.8 Other hemorrhoids; K64.4 Residual hemorrhoidal skin tags; I10 Essential (primary) hypertension; E78.5 Hyperlipidemia, unspecified; F41.8 Other specified anxiety disorders; F17.210 Nicotine dependence, cigarettes, uncomplicated
CPT/HCPCS: 43239; 45385; 36415; 38505; 71260; 72131; 74177; 76942; 80048; 80053; 81003; 82607; 82728; 82746; 83540; 83550; 83690; 83735; 83921; 84238; 85025; 85027; 85049; 85610; 85730; 88305; 88313; 88342; 93306; 96374; 96375; 99285; A9270; G0378; G0379; J1885; J2270; J2405; J2470; J2704; J3360; J7120; Q9967

== ENCOUNTER 2023-12-27 16:39 | Inpatient (IN) | payer SELFPAY ==
--- NOTE | ~2023-12-27 | XR_ITS ---
EXAMINATION: XR chest port-a-cath/central DATE: 12/30/2023 14:20 INDICATION: Status post port catheter insertion TECHNIQUE: frontal view of the chest was obtained. COMPARISON: Chest CT dated 12/15/2023 FINDINGS: New right internal jugular central venous port catheter with distal tip at the caudal superior vena c maryse. Diffuse increased interstitial pattern in both lungs, more prominent on the right likely due to right cordero rotation of the patient. The right upper lobe nodule seen on prior CT and concerning for maligna ncy appears to project over the posterolateral right fifth rib. Linear discoid atelectasis in the rig ht mid lung zone and at the right lung base. No pleural effusion or pneumothorax. Heart size is melina l. IMPRESSION: 1. Right internal jugular central venous port catheter tip at the caudal superior vena cava. No pneum othorax. 2. Diffuse increased interstitial pattern throughout both lungs which could represent mild pulmonary edema or pneumonia. 3. Right upper lobe nodule suspicious for primary bronchogenic carcinoma. Reviewed, dictated and finalized at location A. IMPRESSION: 1. Right internal jugular central venous port catheter tip at the caudal superi or vena cava. No pneumothorax. 2. Diffuse increased interstitial pattern throughout both lungs which could rep resent mild pulmonary edema or pneumonia. 3. Right upper lobe nodule suspicious for primary bronchogenic carcinoma.
--- NOTE | ~2023-12-27 | CT_ITS ---
CT of the Abdomen and Pelvis: Indication: Bloody diarrhea Technique: 2.5 mm axial scans were obtained through the abdomen and pelvis following intravenous adm inistration of 100 cc of Omnipaque 350. Dose reduction technique was used on this scan by utilizing a utomated exposure control and iterative reconstruction technique. The dose-length product (DLP) was 3 50.45 mGy-cm. COMPARISON: 12/15/2023 Findings: Scans through the lung bases demonstrate partially imaged subcarinal and right hilar lymph adenopathy. Small pericardial effusion present, unchanged. The liver, pancreas, gallbladder, adrenals and kidneys are within normal limits. Stable splenomegaly. There are atherosclerotic calcifications of the aorta. Extensive retroperitoneal/periaortic lymphade nopathy is similar to prior exam. Epigastric lymphadenopathy is also unchanged. No bowel obstruction or bowel wall thickening. There is no evidence to suggest acute appendicitis. Images through the pelvis were performed. Urinary bladder unremarkable. No pelvic mass evident. No as cites. Impression: Extensive retroperitoneal/periaortic lymphadenopathy with additional epigastric lymphadenopathy, dc lar to prior exam. Partially imaged subcarinal and right hilar lymphadenopathy also probably unchange d. Findings suggest lymphoma. Stable small pericardial effusion. Reviewed, dictated and finalized at location . Impression: Extensive retroperitoneal/periaortic lymphadenopathy with additional epigastric lymphadenopathy, similar to prior exam. Partially imaged subcarinal and right hilar lymphadenopathy also probably unchanged. Findings suggest lymphoma. Stable small pericardial effusion.
--- NOTE | ~2023-12-27 | XR_ITS ---
XR fl guide central line place Indication: Insertion of portacatheter TECHNIQUE: Fluoroscopy used during Insertion of portacatheter performed by [Lazaro Cardenas DO] on 12/30/2023. 15 seconds of fluoroscopy with 2 images captured. FINDINGS: Correlate with procedure note. IMPRESSION: Fluoroscopy used during Insertion of portacatheter. Reviewed, dictated and finalized at location B.
[2023-12-27 17:04] VITALS: BP 116/78; PULSE 94; RESP 16; TEMP 36.6; O2SAT 94
--- NOTE | 2023-12-27 20:48 | ED.ABDPAIN ---
HPI - Abdominal Pain General Chief Complaint: Abdominal Pain <ANTONETTE Allan Last Filed: 12/28/23 02:06> Stated Complaint: blood stools <Melanie Chicas PA-C - Last Filed: 12/28/23 02:06> Time Seen by Provider: 12/27/23 20:48 <Melanie Chicas PA-C - Last Filed: 12/28/23 02:06> Focused HPI: This is a 63 year old female that presents to the ER for Bloody stools. Reports she recently had a colonoscopy and endoscopy. Was diagnosed with cancer. She is awaiting her biopsy results. She has been having a lot trouble with constipation since her colonoscopy. She took milk of magnesia and did a suppository. Since she has been having bloody stools and abdominal discomfort. Denies fevers. GENERAL: Well-appearing, well-nourished, uncomfortable HEAD: Normocephalic, atraumatic. CHEST: Clear to auscultation. ?No respiratory distress. HEART: Regular rate and rhythm.? NEURO: ?Alert and oriented x3. Patient screened in triage and initial orders placed.? ?Additional care and disposition to be based upon?diagnostic testing and treatment. <Melanie Chicas PA-C - Last Filed: 12/28/23 02:06> Related Data Home Medications: Home Medications Medication Instructions Recorded Confirmed amlodipine 10 mg tablet 10 mg PO HS 12/13/23 12/28/23 atorvastatin 10 mg tablet 10 mg PO HS 12/13/23 12/28/23 losartan 100 mg tablet 100 mg PO DAILY 12/13/23 12/28/23 cholecalciferol (vitamin D3) 25 25 mcg PO DAILY 12/15/23 12/28/23 mcg (1,000 unit) chewable tablet (Vitamin D3) cyanocobalamin (vitamin B-12) 250 250 mcg PO DAILY 12/15/23 12/28/23 mcg tablet (Vitamin B-12) [id number] 8 mg-folic 400 1 tablet PO DAILY 12/15/23 12/28/23 mcg-K 50 mcg-lutein 300 mcg tablet (Century Women 50 Plus) vitamin E 400 unit tablet 180 mg PO DAILY 12/15/23 12/28/23 <ANTONETTE Allan Filed: 12/28/23 02:06> Allergies/Adverse Reactions: Allergies Allergy/AdvReac Type Severity Reaction Status Date / Time Penicillins Allergy Unknown Verified 12/28/23 02:35 sertraline [From Zoloft] Allergy Other Verified 12/28/23 02:35 <Melanie Chicas PA-C - Last Filed: 12/28/23 02:06> Review of Systems Review of Systems: CONSTITUTIONAL: Denies fever GASTROINTESTINAL: Reports abdominal pain, nausea, and diarrhea. GENITOURINARY: Denies dysuria MUSCULOSKELETAL: Reports back pain <Melanie Chicas PA-C - Last Filed: 12/28/23 02:06> All systems reviewed & are unremarkable except as noted in HPI and below <Melanie Chicas PA-C - Last Filed: 12/28/23 02:06> [facility] Past Medical History Medical History: Medical History Depression with anxiety Hyperlipidemia Hypertension Tobacco dependence <Melanie Chicas PA-C - Last Filed: 12/28/23 02:06> Surgical History Surgical History: Surgical History History of surgical removal of ganglion cyst Left wrist. <ANTONETTE Allan Last Filed: 12/28/23 02:06> Family History Family History: Family History Unknown Hypertension Father Diabetes mellitus Mother Diabetes mellitus Kidney failure Sibling Diabetes mellitus <ANTONETTE Allan Last Filed: 12/28/23 02:06> Social History Social History: Social History Social History: Surrogate medical decision maker: Lavellsully Carter, spouse. Code status: Full code. Smoking packs per day: 0.75 Smoking cigarettes per day: 15.0 Years smoked: 40 Smoking pack-years: 30.00 Smoking status: Current every day smoker Alcohol intake: current Drinks per week: 5 Substance use type: does not use Do You Feel Safe in your Home?: Yes Lack of Transportation: No Lack of Food: Never True Current Housing: I Do Not Have Housing Claudia
[2023-12-27 20:56] LABS: Basophils Absolute Auto 0.1 K/mm3 (0.0-0.1); Basophils Percent Auto 0.9 % (0.2-1.2); Eosinophils Absolute Auto 0.3 K/mm3 (0-0.3); Eosinophils Percent Auto 2.3 % (0-4.4); Hematocrit 34.1 % (37.0-47.0); Hemoglobin 10.4 g/dL (12.0-15.0); Immature Granulocyte Absolute 0.04 K/mm3 (0.00-0.031); Immature Granulocyte Percent A 0.4 % (0-0.5); Lymphocytes Absolute Auto 0.91 K/mm3 (0.9-3.2); Lymphocytes Percent Auto 8.3 % (18.3-44.2); Mean Corpuscular HGB Conc 30.5 g/dl (32-36); Mean Corpuscular Hemoglobin 24.7 pg (26-34); Mean Platelet Volume 10.2 fl (7.4-10.4); Monocytes Absolute Auto 0.8 K/mm3 (0.1-0.6); Monocytes Percent Auto 7.5 % (2.6-8.5); Neutrophils Absolute Auto 8.9 K/mm3 (1.3-6.7); Neutrophils Percent Auto 80.6 % (45.5-73.1); Platelet Count Result 352 k/mm3 (150-375); Red Blood Count 4.21 M/mm3 (4.2-5.4); Red Cell Distribution Width 14.4 % (11.5-14.5)
[2023-12-27 21:09] LABS: INR 1.2; Lactic Acid Reflex 1.2 mmol/L (0.7-2.0); Prothrombin Time 15.1 Seconds (11.1-14.7)
[2023-12-27 21:10] LABS: Partial Thromboplastin Time 32.5 Seconds (22.3-36.8)
[2023-12-27 21:12] LABS: Alanine Aminotransferase 11 U/L (6-35); Albumin Level 4.1 g/dL (3.5-5.1); Alkaline Phosphatase 123 U/L (38-126); Anion Gap 12 mmol/L (4-12); Aspartate Amino Transferase 34 U/L (14-36); Bilirubin,Total 0.5 mg/dL (0.2-1.3); Blood Urea Nitrogen 12 mg/dL (7-17); Calcium 8.9 mg/dL (8.4-10.2); Carbon Dioxide 27 mmol/L (22-30); Chloride 96 mmol/L (98-107); Estimated CRCL calculation 62 ml/min; Estimated Glomerular Filt Rate > 60; Glucose 112 mg/dL (65-110); Lipase 52 U/L (23-300); Magnesium 2.6 mg/dL (1.6-2.3); Potassium 4.5 mmol/L (3.4-5.0); Sodium 135 mmol/L (137-145)
[2023-12-27 22:57] VITALS: PULSE 76; RESP 28; O2SAT 90
[2023-12-27 23:00] VITALS: PULSE 79; RESP 20
[2023-12-27 23:01] VITALS: BP 108/67; PULSE 81; RESP 28; TEMP 37.1
[2023-12-27] MEDS: ONDANSETRON INJ 4 MG/2 ML VIAL IV PUSH (23:23)
[2023-12-27] MEDS: diazePAM INJ (*CRX) 10 MG/2 ML SYRINGE 5 MG IV PUSH (23:23)
[2023-12-27 23:30] VITALS: O2SAT 84; O2SAT 97
[2023-12-28] VITALS (13 sets, daily range): BP systolic 107–128; BP diastolic 61–76; PULSE 64–78; RESP 16–23; TEMP 36.1–36.9; O2SAT 92–98; BMI 20.4
[2023-12-28 01:28] LABS: Hematocrit 29.4 % (37.0-47.0); Hemoglobin 9.3 g/dL (12.0-15.0)
--- NOTE | 2023-12-28 01:30 | PM.IMHP ---
H&P: HPI History of Present Illness Date/Time: 12/28/23 01:30 Chief Complaint: BRIGHT RED BLOOD PER RECTUM Narrative: THIS IS A 63-YEAR-OLD FEMALE WITH PAST MEDICAL HISTORY SIGNIFICANT FOR HYPERTENSION, TOBACCO DEPENDENCE, RECENTLY DIAGNOSED WITH ESOPHAGEAL CA. PATIENT PRESENTS TO THE EMERGENCY ROOM DUE TO BRIGHT RED BLOOD PER RECTUM. HE HAD PATIENT HAS HAD A WEIGHT LOSS OF ROUGHLY 30 LB IN A MONTH PATIENT HAS DYSPHAGIA TO SOLIDS ABLE TO SWELLING PUDDING THICK LIQUIDS. A SMOKES LESS THAN A PACK OF CIGARETTES DAILY . PRELIMINARY WORKUP WAS SIGNIFICANT FOR A HEMOGLOBIN OF 11. PATIENT HAS BEEN PLACED IN OBSERVATION FOR FURTHER EVALUATION MANAGEMENT AND TREATMENT. CT of the Abdomen and Pelvis: Indication: Bloody diarrhea Technique: 2.5 mm axial scans were obtained through the abdomen and pelvis following intravenous administration of 100 cc of Omnipaque 350. Dose reduction technique was used on this scan by utilizing automated exposure control and iterative reconstruction technique. The dose-length product (DLP) was 350.45 mGy-cm. COMPARISON: 12/15/2023 Findings: Scans through the lung bases demonstrate partially imaged subcarinal and right hilar lymphadenopathy. Small pericardial effusion present, unchanged. The liver, pancreas, gallbladder, adrenals and kidneys are within normal limits. Stable splenomegaly. There are atherosclerotic calcifications of the aorta. Extensive retroperitoneal/periaortic lymphadenopathy is similar to prior exam. Epigastric lymphadenopathy is also unchanged. No bowel obstruction or bowel wall thickening. There is no evidence to suggest acute appendicitis. Images through the pelvis were performed. Urinary bladder unremarkable. No pelvic mass evident. No ascites. Impression: Extensive retroperitoneal/periaortic lymphadenopathy with additional epigastric lymphadenopathy, similar to prior exam. Partially imaged subcarinal and right hilar lymphadenopathy also probably unchanged. Findings suggest lymphoma. Stable small pericardial effusion. Review of Systems Review of Systems: BRIGHT RED BLOOD PER RECTUM PMFSH Past Medical History Medical History Chronic anemia Constipation due to opioid therapy Depression with anxiety Hyperlipidemia Hypertension Retroperitoneal lymphadenopathy Tobacco dependence Surgical History Surgical History History of surgical removal of ganglion cyst Left wrist. Family History Family History Unknown Hypertension Father Diabetes mellitus Mother Diabetes mellitus Kidney failure Sibling Diabetes mellitus Social History Social History Social History: Surrogate medical decision maker: Lavell Carter, spouse. Code status: Full code. Smoking packs per day: 0.75 Smoking cigarettes per day: 15.0 Years smoked: 40 Smoking pack-years: 30.00 Smoking status: Current every day smoker Alcohol intake: current Drinks per week: 5 Substance use type: does not use Do You Feel Safe in your Home?: Yes Lack of Transportation: No Lack of Food: Never True Current Housing: I Do Not Have Housing Concerned About Future Housing: No Difficulty Paying Gas/Electric Bills: No Difficulty Paying for Meds: No Currently Unemployed: No Education: High School Diploma/GED Difficulty w/ Childcare or Family Care: No Spiritual care concerns: No Meds Home Medications and Allergies Home Medications Medication Instructions Recorded Confirmed Type amlodipine 10 mg tablet 10 mg PO HS 12/13/23 12/28/23 History atorvastatin 10 mg tablet 10 mg PO HS 12/13/23 12/28/23 History losartan 100 mg tablet 100 mg PO DAILY 12/13/23 12/28/23 History cholecalciferol (vitamin D3) 25 25 mcg PO DAILY 12/15/23
[2023-12-28] MEDS: CEFEPIME 2 GM/NS 50 ML 2 GM/50 ML BAG IVPB (01:56)
[2023-12-28 02:09] LABS: Hematocrit 30.8 % (37.0-47.0); Hemoglobin 11.1 g/dL (12.0-15.0)
[2023-12-28] MEDS: metroNIDAZOLE 500 MG/ISO 100ML 500 MG/100 ML BAG 100 MG IVPB ×2 (02:12→19:05)
[2023-12-28 02:35] LABS: Add Urine Microscopic? NO; Appearance Urine Clear (Clear); Bilirubin Urine Negative (Negative); Blood Urine Negative (Negative); Color Urine Yellow (Yellow); Glucose Urine UA Negative (Negative); Ketones Urine Negative (Negative); Leukocyte Esterase Ur Negative LEU/UL (Negative); Nitrate Urine Negative (Negative); Protein Urine Negative (Negative); Urobilinogen Urine 0.2 mg/dL (<2.0)
[2023-12-28] MEDS: HYDROcodone/acetaminophen (*CRX) 5-325 MG TABLET 1 TAB PO ×2 (02:41→07:47)
--- NOTE | 2023-12-28 06:23 | PC.NURSE ---
Pt reminded of stool sample needed. Pt unable to provide sample at this time.
--- NOTE | 2023-12-28 07:33 | PC.NURSE ---
RN notified hospitalist Dr. Wren for pain med. Dr. Wren states You should have list of which hospitalist has that pt. I'm not sure I have that pt. RN spoke with charge nurse & choir teacher there is no list due to pts in boarded status. MD states he will have to call back. RN spoke with charge nurse instructed to ask ER MD. Dr. Sanchez ordered pain med. Dr. Wren returned call insisting RN find list, RN informed Dr. Wren informed there is no list. RN spoke with ED MD & received order. Dr. Wren insisted RN find the list. RN reiterated we do not have a list. RN informed I will notify account collector when she arrives to avoid any other confusion
--- NOTE | 2023-12-28 08:11 | P.CONGI_ITS ---
I, Jerry Mays MD, have provided a substantive portion of the care of this patient and discussed the patient with my Nurse Practitioner. I have reviewed any new relevant radiographic and laboratory results including medications. I agree with her documentation as noted below.?I personally performed the medical decision making and much of the history and exam for this encounter. briefly, she was in the hospital recently, had EGD/colonoscopy 11 days ago that showed large esophageal adenocarcinoma with partial obstruction, colonoscopy with small TA polyps removed and hemorrhoids. Here after constipation- she is using norco- despite miralax, finally had BM but also noted blood in stool after straining, she has chronic anemia. CT scan with similar findings of enlarged lymphoadenopathy. She has not started treatment for cancer yet. Plan is to prevent constipation in setting of narcotics, start amitiza and miralax as needed. Also needs to follow-up with oncology. Ok to resume diet. Assessment and Plan Assessment and plan (1) Acute GI bleeding: Code(s): K92.2 - Gastrointestinal hemorrhage, unspecified Status: Acute (2) Esophageal carcinoma: Code(s): C15.9 - Malignant neoplasm of esophagus, unspecified Status: Acute (3) Anemia: Qualifiers: Anemia type: other cause Other causes of anemia: chronic disease, other Qualified Code(s): D63.8 - Anemia in other chronic diseases classified elsewher e Code(s): D64.9 - Anemia, unspecified Status: Acute (4) Weight loss: Code(s): R63.4 - Abnormal weight loss Status: Acute (5) Dysphagia: Qualifiers: Dysphagia type: other dysphagia Qualified Code(s): R13.19 - Other dy sphagia Code(s): R13.10 - Dysphagia, unspecified Status: Acute (6) Appetite loss: Code(s): R63.0 - Anorexia Status: Acute (7) Hemorrhoids: Qualifiers: Hemorrhoid type: first degree Qualified Code(s): K64.0 - First degree hemorrhoids Code(s): K64.9 - Unspecified hemorrhoids Status: Acute Plan 1. GI bleed/constipation/Rectal pain/chronic anemia/hemorrhoids: Last colono scopy on 12/17/2023 showed medium-sized internal hemorrhoids. Since her colonoscopy 12/17/2023 the patient states that she has been having constipation and yesterday she used A suppository, MiraLax, and magnesium citrate before she was able to start passing stool. Patient states that she had significant discomfort and straining with bowel movements and then started to notice bright red blood per rectum. She has been using hydrocodone 10 mg Q 4-6 hours, recent onset of constipation likely due to hydrocodone use. Bright red blood per rectum possibly due to hemorrhoids irritated by straining BM's. Admits to sharp rectal pain that was occurring yesterday with BM's. Patient with stable anemia since 12/16/2023 with labs yesterday showing Hgb 10 and Hct 34. Iron panel 12/16/2023 was normal except iron sat @ 12. No signs of active GI bleeding at this time. * Initiate bowel regimen to prevent constipation, start Amitiza 24 mcg 1-2 times daily * No plan for endoscopic evaluation at this time * Primary care team to continue monitoring H/H and transfuse as needed to keep Hgb >7 2. Esophageal cancer/Dysphagia/weight loss/appetite loss/nausea: Recently diagnosed esophageal adenocarcinoma on EGD (12/17/2023). Patient is currently scheduled for an outpatient visit with Oncology today, hopefully they will see the patient while she is hospitalized. Patient admits to dysphagia with solid foods but denies any difficulty swallowing liquids or pills. She
--- NOTE | 2023-12-28 08:11 | WPDGICN ---
Assessment and Plan Assessment and plan (1) Acute GI bleeding: Code(s): K92.2 - Gastrointestinal hemorrhage, unspecified Status: Acute (2) Esophageal carcinoma: Code(s): C15.9 - Malignant neoplasm of esophagus, unspecified Status: Acute (3) Anemia: Qualifiers: Anemia type: other cause Other causes of anemia: chronic disease, other Qualified Code(s): D63.8 - Anemia in other chronic diseases classified elsewhere Code(s): D64.9 - Anemia, unspecified Status: Acute (4) Weight loss: Code(s): R63.4 - Abnormal weight loss Status: Acute (5) Dysphagia: Qualifiers: Dysphagia type: other dysphagia Qualified Code(s): R13.19 - Other dysphagia Code(s): R13.10 - Dysphagia, unspecified Status: Acute (6) Appetite loss: Code(s): R63.0 - Anorexia Status: Acute (7) Hemorrhoids: Qualifiers: Hemorrhoid type: first degree Qualified Code(s): K64.0 - First degree hemorrhoids Code(s): K64.9 - Unspecified hemorrhoids Status: Acute Plan 1. GI bleed/constipation/Rectal pain/chronic anemia/hemorrhoids: Last colonoscopy on 12/17/2023 showed medium-sized internal hemorrhoids. Since her colonoscopy 12/17/2023 the patient states that she has been having constipation and yesterday she used A suppository, MiraLax, and magnesium citrate before she was able to start passing stool. Patient states that she had significant discomfort and straining with bowel movements and then started to notice bright red blood per rectum. She has been using hydrocodone 10 mg Q 4-6 hours, recent onset of constipation likely due to hydrocodone use. Bright red blood per rectum possibly due to hemorrhoids irritated by straining BM's. Admits to sharp rectal pain that was occurring yesterday with BM's. Patient with stable anemia since 12/16/2023 with labs yesterday showing Hgb 10 and Hct 34. Iron panel 12/16/2023 was normal except iron sat @ 12. No signs of active GI bleeding at this time. Initiate bowel regimen to prevent constipation, start Amitiza 24 mcg 1-2 times daily No plan for endoscopic evaluation at this time Primary care team to continue monitoring H/H and transfuse as needed to keep Hgb >7 2. Esophageal cancer/Dysphagia/weight loss/appetite loss/nausea: Recently diagnosed esophageal adenocarcinoma on EGD (12/17/2023). Patient is currently scheduled for an outpatient visit with Oncology today, hopefully they will see the patient while she is hospitalized. Patient admits to dysphagia with solid foods but denies any difficulty swallowing liquids or pills. She is on Protonix 40 mg daily at home and reflux has been controlled. She admits to a poor appetite and states that she has lost approximately 30 lb over the past month. she admits to mild intermittent nausea without vomiting. Nausea temporal improves with antiemetics. Await oncology recommendations for further management and treatment plan Continue Protonix 40 mg b.i.d. Continue supportive care with antiemetics and pain management Monitor nutritional status and weight Thank you very much for allowing me to share in the care of this very nice patient. This report may have been done utilizing a voice recognition system. Attempts have been made to correct errors. However, there may be uncorrected grammatical, spelling, and recognition errors present. GI Consult Note Consult date/time: 12/28/23 08:11 Reason for consult: GI bleed HPI: This is a pleasant 63-year-old female with a past medical surgical history of depression, anxiety, HLD, HTN, and recently diagnosed esophageal cancer. She presented to the ER room 12/27/2023 with complaints of bloody stools. GI consulted for GI bleed. Patient seen in ER 8 pending bed for admission. She was recently seen in our office on 12/17/2023 for EGD and colonoscopy. EGD showed a protruding, friable, fungating, circumferential, ulcerated, infi
[2023-12-28] MEDS: PANTOPRAZOLE SODIUM IV 40 MG VIAL IV PUSH ×2 (09:49→22:02)
[2023-12-28] MEDS: LUBIPROSTONE 8 MCG CAPSULE 24 MCG PO ×2 (09:49→17:40)
--- NOTE | 2023-12-28 10:49 | PC.NURSE ---
Addendum entered by Heike Conley RN 12/28/23 10:50: AM care given Original Note: Pt requesting a soda . Pt & informed of NPO status.
--- NOTE | 2023-12-28 12:31 | PC.NURSE ---
Ilsa Barrett notified of pt c/o pain. Orders received
[2023-12-28 12:45] LABS: Hematocrit 33.9 % (37.0-47.0); Hemoglobin 9.9 g/dL (12.0-15.0)
--- NOTE | 2023-12-28 13:21 | PC.NURSE ---
Ilsa Barrett BALANCE RECESSER notified pt refusing Morphine & is requesting Witt. Order received
[2023-12-28] MEDS: HYDROcodone/acetaminophen (*CRX) 10-325 MG TABLET 1 TAB PO ×3 (13:39→22:44)
--- NOTE | 2023-12-28 14:38 | PC.NURSE ---
1428-I spoke with Dr. Montesinos who gave the telephone order to downgrade the patient's status to Med/Surg. boiler house supervisor, Shena BANKS, notified of status change.
--- NOTE | 2023-12-28 15:51 | PM.IMPN ---
Progress Note: A&P Assessment and Plan (1) Colitis: Code(s): K52.9 - Noninfective gastroenteritis and colitis, unspecified Status: Acute Assessment and Plan: Continue Cefepime and Flagyl Trend labs and VS. GI consulted and no further recs at this time other than to start Amitiza and monitor. Soft diet with pudding thickened liquids ordered secondary to pt's dysphagia. Normal saline 100 ml/hr ordered. PRN pain meds and anti-emetics. Continue protonix. (2) Acute GI bleeding: Code(s): K92.2 - Gastrointestinal hemorrhage, unspecified Status: Acute Assessment and Plan: GI consulted. Believe etiology is hemorrhoidal in nature. Continue Protonix Monitor labs and transfuse if Hgb <7. (3) Dysphagia: Qualifiers: Dysphagia type: other dysphagia Qualified Code(s): R13.19 - Other dysphagia Code(s): R13.10 - Dysphagia, unspecified Status: Acute Assessment and Plan: Secondary to pts Esophageal CA. She tolerates at baseline pudding thickened liquids. Soft diet with pudding thickened liquids ordered. Monitor labs and VS. (4) Tobacco dependence: Code(s): F17.200 - Nicotine dependence, unspecified, uncomplicated Status: Acute Assessment and Plan: Nicotine patch ordered (5) Esophageal carcinoma: Code(s): C15.9 - Malignant neoplasm of esophagus, unspecified Status: Acute Assessment and Plan: Awaiting consult of Oncology, Dr. Kurtz. Pt was supposed to have an appointment with him earlier today, but did not make the appointment as she was in the ER. Time Spent With Patient Time with patient: 25 - 35 minutes Subjective Date/time seen: 12/28/23 1400 Interval history: This pt was examined at the bedside today in interval assessment since presenting to the ER with bleeding per rectum. GI has consulted and believes that pt's bleeding is due to hemorrhoids as there were some noted in the Colonoscopy that she previously had earlier this year. Hgb has remained stable. Awaiting Consult from Oncology and then may discharge if pain is controlled. GI recs to start Amitiza, no endoscopic eval at this time, and to monitor H&H. Review of Systems Review of Systems: All systems reviewed & are unremarkable except as noted in HPI and below Exam Narrative: CONSTITUTIONAL: Chronically ill appearing female pt lying supine at this time. She appears to have a michael discoloration to her skin and is pale. She appears to be uncomfortable. HEENT: Head is atraumatic and normocephalic. Dry mucous membranes. Patent oropharynx. EYES: PERRLA NECK: FROM, supple active ROM, no JVD, no LN palpable RESPIRATORY: Decreased in all miller. CARDIO: RRR, S1 and S2 present without S3, S4, m,r,g,h GI: Abd is mildly TTP with BS present in all four quads. : Deferred SKIN: Pallor with some michael appearance. NEURO: Non-focal exam EXTREMITIES: Fully and equally MAEW. PSYCH: A&Ox4 with normal affect. Objective Data Vital Signs Vital Signs: Vital Signs - 24 hr 12/27/23 17:04 12/27/23 22:57 12/27/23 23:00 Temperature 97.9 F Pulse Rate 94 76 79 Respiratory Rate 16 28 H 20 Blood Pressure 116/78 Pulse Oximetry 94 90 Oxygen Delivery Room Air Oxygen Flow Rate 12/27/23 23:01 12/27/23 23:30 12/27/23 23:30 Temperature 98.7 F Pulse Rate 81 Respiratory Rate 28 H Blood Pressure 108/67 Pulse Oximetry 84 L 97 Oxygen Delivery Room Air Nasal Cannula Oxygen Flow Rate 3 12/28/23 02:13 12/28/23 02:13 12/28/23 03:20 Temperature Pulse Rate 71 69 Respiratory Rate 23 H 20 Blood Pressure 117/69 110/66 Pulse Oximetry 92 94 92 Oxygen Delivery Nasal Cannula Oxygen Flow Rate 2 12/28/23 06:18 12/28/23 07:51 12/28/23 07:52 Temperature 97.7 F Pulse Rate 67 65 Respiratory Rate 22 H 18 Blood Pressure 111/69 109/69 Pulse Oximetry 94 94 94 Oxygen Delivery Nasal Cannula Oxygen Flow Rate 2 12/28/23 09
--- NOTE | 2023-12-28 15:56 | ADMGEN ---
This patient, Mei Carter, was admitted to [facility] Surg Room 321-02. Patient/family oriented to hospital policies and general routines including ID bracelet, bed and alarms, visiting hours, pain management, procedures, bathroom and other care routines, personal items, smoking policy, room service/diet, and visiting hours. Information on how to activate the Rapid Response Team has been discussed. Patient/Family are encouraged to report perceived risks to care and to ask questions if they do not understand what they are told or what they should do.
[2023-12-28] MEDS: levoFLOXacin 750 MG/D5W 150 ML 750 MG/150 ML BAG 100 MG IVPB (16:44)
[2023-12-28] MEDS: SODIUM CHLORIDE 0.9% IV 1,000 ML 100 ML IV CONT (16:45)
[2023-12-28 18:06] LABS: Hematocrit 28.5 % (37.0-47.0); Hemoglobin 8.9 g/dL (12.0-15.0)
[2023-12-28] MEDS: ONDANSETRON INJ 4 MG/2 ML VIAL IV PUSH (19:05)
[2023-12-29] MEDS: metroNIDAZOLE 500 MG/ISO 100ML 500 MG/100 ML BAG 100 MG IVPB ×3 (01:38→15:32)
[2023-12-29] MEDS: HYDROcodone/acetaminophen (*CRX) 10-325 MG TABLET 1 TAB PO ×5 (03:30→19:22)
[2023-12-29 06:00] VITALS: BP 103/60; PULSE 64; RESP 16; TEMP 36.5; O2SAT 93
--- NOTE | 2023-12-29 07:21 | PDONCCN ---
HPI - Date of Consult Date/Time: 12/29/23 07:21 Requesting Physician: JOHN Owen Primary Care Provider: Coleen Wellington, PA - Consult Narrative Reason for consult: Metastatic esophageal cancer Narrative: Mei Carter is a 63 year old female with history of hypertension recently diagnosed with esophageal cancer came into the ER due to constipation and bright red blood per rectum. She has been eating poorly and has been losing weight. Labs showed hemoglobin of 10.4. CT scan showed extensive retroperitoneal and periaortic lymphadenopathy with additional 6 lymphadenopathy stable. There was partially may subcarinal and right hilar lymphadenopathy. Patient had appointment my office yesterday but came into the hospital because of her symptoms. Her last colonoscopy was on December 16 that showed colon and rectal polyps with internal hemorrhoids. EGD was also done on December 16 that showed then a paring lower esophageal mass and biopsy came back positive for adenocarcinoma. Review of Systems - Review of Systems All systems reviewed & are unremarkable except as noted in HPI and [facility] Medical History: Medical History (Last Reviewed 12/17/23 @ 12:49 by Osmany Pedro DO) Depression with anxiety Hyperlipidemia Hypertension Tobacco dependence Surgical History: Surgical History (Last Reviewed 12/17/23 @ 12:49 by Osmany Pedro DO) History of surgical removal of ganglion cyst Left wrist. Family History: Family History (Last Reviewed 12/28/23 @ 02:27 by Vanessa Castañeda RN) Unknown Hypertension Father Diabetes mellitus Mother Diabetes mellitus Kidney failure Sibling Diabetes mellitus - Social History Social History: Social History (Last Reviewed 12/17/23 @ 12:49 by Osmany Pedro DO) Alcohol Use: Alcohol intake: current Drinks per week: 5 Substance Use: Substance use type: does not use Others: Spiritual care concerns: No Smoking Status: Smoking status: Current every day smoker Smoking Pack-years: Smoking packs per day: 0.75 Smoking cigarettes per day: 15.0 Years smoked: 40 Smoking pack-years: 30.00 Social Determinants of Health: Do You Feel Safe in your Home?: Yes Has the Lack of Transportation Kept You From Medical Appointments or From Getting Medications?: No Within the Past 12 Months, Were You Worried Whether Your Food Would Run Out Before You Got Money to Buy More?: Never True What is Your Housing Situation Today?: I Do Not Have Housing Are You Worried That in the Next 2 Months, You May Not Have Your Own Housing to Live In?: No Do You Have Trouble Paying Your Heating Or Electricity Bill?: No Do You Have Trouble Paying For Medicines?: No Are You Currently Unemployed and Looking for Work?: No Highest Level of Education Completed: High School Diploma/GED Do You Have Trouble With Childcare or the Care of a Family Member?: No Exam - Vital Signs Vital Signs - 24 hr 12/28/23 07:51 12/28/23 07:52 12/28/23 09:50 Temperature 36.5 C Pulse Rate 65 64 Respiratory Rate 18 17 Blood Pressure 109/69 110/67 Pulse Oximetry 94 94 94 Oxygen Delivery Nasal Cannula Oxygen Flow Rate 2 12/28/23 13:42 12/28/23 15:12 12/28/23 15:59 Temperature 36.7 C 36.7 C 36.9 C Pulse Rate 73 76 68 Respiratory Rate 18 18 18 Blood Pressure 108/72 107/70 115/62 Pulse Oximetry 94 96 93 Oxygen Delivery Oxygen Flow Rate 12/28/23 18:00 12/28/23 16:00 12/28/23 22:13 Temperature 36.7 C Pulse Rate 78 Respiratory Rate 18 Blood Pressure 128/76 Pulse Oximetry 93 98 93 Oxygen Delivery Nasal Cannula Oxygen Flow Rate 2 2 12/28/23 22:00 Temperature 36.1 C L Pulse Rate 65 Respiratory Rate 16 Blood Pressure 109/61 Pulse Oximetry 94 Oxygen Delivery Oxygen Flow Rate - Exam HEENT: EOMI, PERRLA, mucous membranes moist and pink Neck: supp
[2023-12-29] MEDS: LUBIPROSTONE 8 MCG CAPSULE 24 MCG PO ×2 (08:06→15:32)
[2023-12-29] MEDS: IRON SUCROSE COMPLEX 400 MG, IRON SUCROSE COMPLEX 100 MG in SODIUM CHLORIDE 0.9% IV 250 ML 78.57 MG IVPB (08:10)
[2023-12-29] MEDS: PANTOPRAZOLE SODIUM IV 40 MG VIAL IV PUSH ×2 (08:10→21:49)
[2023-12-29] MEDS: SODIUM CHLORIDE 0.9% IV 1,000 ML 100 ML IV CONT ×2 (08:15→15:37)
[2023-12-29] MEDS: ONDANSETRON INJ 4 MG/2 ML VIAL IV PUSH (08:15)
[2023-12-29 08:22] VITALS: O2SAT 93
[2023-12-29 08:46] LABS: Basophils Absolute Auto 0.1 K/mm3 (0.0-0.1); Basophils Percent Auto 0.9 % (0.2-1.2); Eosinophils Absolute Auto 0.3 K/mm3 (0-0.3); Eosinophils Percent Auto 4.4 % (0-4.4); Immature Granulocyte Absolute 0.02 K/mm3 (0.00-0.031); Immature Granulocyte Percent A 0.3 % (0-0.5); Lymphocytes Absolute Auto 0.68 K/mm3 (0.9-3.2); Lymphocytes Percent Auto 9.6 % (18.3-44.2); Mean Corpuscular Hemoglobin 24.7 pg (26-34); Mean Corpuscular Volume 85.2 fl (80-100); Mean Platelet Volume 10.5 fl (7.4-10.4); Monocytes Absolute Auto 0.7 K/mm3 (0.1-0.6); Monocytes Percent Auto 9.2 % (2.6-8.5); Neutrophils Absolute Auto 5.3 K/mm3 (1.3-6.7); Neutrophils Percent Auto 75.6 % (45.5-73.1); Platelet Count Result 240 k/mm3 (150-375); Red Blood Count 3.64 M/mm3 (4.2-5.4); Red Cell Distribution Width 14.4 % (11.5-14.5); White Blood Count 7.1 K/mm3 (4.5-10.0)
[2023-12-29 08:55] LABS: Alanine Aminotransferase 8 U/L (6-35); Albumin Level 3.5 g/dL (3.5-5.1); Alkaline Phosphatase 90 U/L (38-126); Anion Gap 11 mmol/L (4-12); Aspartate Amino Transferase 33 U/L (14-36); Bilirubin,Total 0.5 mg/dL (0.2-1.3); Blood Urea Nitrogen 8 mg/dL (7-17); Calcium 8.2 mg/dL (8.4-10.2); Carbon Dioxide 22 mmol/L (22-30); Chloride 100 mmol/L (98-107); Estimated CRCL calculation 78 ml/min; Estimated Glomerular Filt Rate > 60; Glucose 101 mg/dL (65-110); Magnesium 2.3 mg/dL (1.6-2.3); Potassium 4.2 mmol/L (3.4-5.0); Sodium 133 mmol/L (137-145)
[2023-12-29 11:08] VITALS: BMI 20.5
--- NOTE | 2023-12-29 11:44 | P.CDI_ITS ---
Moderate CDI Query Clarification Request BMI 20.5 Nutritional Diagnostic Statement: Please refer to the comprehensive nutrition assessment for further information. If you agree with diagnosis of Severe protein calorie malnutrition related to inadequate energy intake as evidenced by a significant weight loss of -18% x 1 month, pt report of reduced po intake for greater than 1 month, and NFPE findings for moderate to severe subcutaneous fat loss and muscle wasting (cheeks, biceps, zoroastrianism, clavicle, knee, calf). Please specify severity if known: * Mild * Moderate * Severe * Other/Unknown
--- NOTE | 2023-12-29 11:45 | P.PNIM_ITS ---
Progress Note: A&P Assessment and Plan (1) Colitis: Code(s): K52.9 - Noninfective gastroenteritis and colitis, unspecified Status: Acute Assessment and Plan: * Continue Cefepime and Flagyl * Trend labs and VS. * GI consulted and no further recs at this time other than to start Amitiza and monitor. * Soft diet with pudding thickened liquids ordered secondary to pt's dysphagia. * Normal saline 100 ml/hr ordered. * PRN pain meds and anti-emetics. * Continue protonix. 12/29/23: * Continue supportive care, abx and monitor. (2) Acute GI bleeding: Code(s): K92.2 - Gastrointestinal hemorrhage, unspecified Status: Acute Assessment and Plan: * GI consulted. Believe etiology is hemorrhoidal in nature. * Continue Protonix * Monitor labs and transfuse if Hgb <7. 12/29/23: * No further complains of melanous stools or any hematochezia. * Continue protonix * Hgb stable today at 9.0. * Continue Amitiza. (3) Dysphagia: Qualifiers: Dysphagia type: other dysphagia Qualified Code(s): R13.19 - Other dysphagia Code(s): R13.10 - Dysphagia, unspecified Status: Acute Assessment and Plan: * Secondary to pts Esophageal CA. * She tolerates at baseline pudding thickened liquids. * Soft diet with pudding thickened liquids ordered. * Monitor labs and VS. 12/29/23: * Pt with continued difficulty eating and swallowing secondary to mass. * Continue soft diet with pudding thickened liquids. * pt will need nutrition for her cancer treatment, so dietitian consulted to maximize calories and protein. * Ensure ordered with each meal. * Continue protonix. (4) Tobacco dependence: Code(s): F17.200 - Nicotine dependence, unspecified, uncomplicated Status: Chronic Assessment and Plan: * Nicotine patch ordered (5) Esophageal carcinoma: Code(s): C15.9 - Malignant neoplasm of esophagus, unspecified Status: Acute Assessment and Plan: * Awaiting consult of Oncology, Dr. Kurtz. Pt was supposed to have an appointment with him earlier today, but did not make the appointment as she was in the ER. 12/29/23: * Dr. Kurtz consulted and made recs. Gen sgy consulted to place port while here. * Encouraged to eat as she can. * Upcoming chemo to be started. (6) Anemia: Qualifiers: Anemia type: unspecified type Qualified Code(s): D64.9 - Anemia, unspecified Code(s): D64.9 - Anemia, unspecified Status: Acute Assessment and Plan: * Pt to start iron infusions today as ordered by Dr. Kurtz for treatment of NURIS. Time Spent With Patient Time with patient: 25 - 35 minutes Subjective Date/time seen: 12/29/23 0840 Interval history: This very pleasant 63 year old female is examined at the bedside today in interval assessment since being admitted to the hospital. She has been consulted on by GI and has been started on Amitiza. Dr. Kurtz evaluated this AM and has asked Gen Sgy to consult to place a port in preparation for chemotherapy. Pt continues to complain of nausea and does not feel well overall. She will also be started on IV iron for her NURIS. She has no other new complaints, specifically melena, hematochezia or hematemesis. She denies any CP, dyspnea. Review of Systems Review of Systems: All systems reviewed & are unremarkable except as noted in HPI and below Exam Narrative: CONSTITUTIONAL: Chronically ill appearing female pt sitting up at this time attempting to e
--- NOTE | 2023-12-29 11:45 | PM.IMPN ---
Progress Note: A&P Assessment and Plan (1) Colitis: Code(s): K52.9 - Noninfective gastroenteritis and colitis, unspecified Status: Acute Assessment and Plan: Continue Cefepime and Flagyl Trend labs and VS. GI consulted and no further recs at this time other than to start Amitiza and monitor. Soft diet with pudding thickened liquids ordered secondary to pt's dysphagia. Normal saline 100 ml/hr ordered. PRN pain meds and anti-emetics. Continue protonix. 12/29/23: Continue supportive care, abx and monitor. (2) Acute GI bleeding: Code(s): K92.2 - Gastrointestinal hemorrhage, unspecified Status: Acute Assessment and Plan: GI consulted. Believe etiology is hemorrhoidal in nature. Continue Protonix Monitor labs and transfuse if Hgb <7. 12/29/23: No further complains of melanous stools or any hematochezia. Continue protonix Hgb stable today at 9.0. Continue Amitiza. (3) Dysphagia: Qualifiers: Dysphagia type: other dysphagia Qualified Code(s): R13.19 - Other dysphagia Code(s): R13.10 - Dysphagia, unspecified Status: Acute Assessment and Plan: Secondary to pts Esophageal CA. She tolerates at baseline pudding thickened liquids. Soft diet with pudding thickened liquids ordered. Monitor labs and VS. 12/29/23: Pt with continued difficulty eating and swallowing secondary to mass. Continue soft diet with pudding thickened liquids. pt will need nutrition for her cancer treatment, so dietitian consulted to maximize calories and protein. Ensure ordered with each meal. Continue protonix. (4) Tobacco dependence: Code(s): F17.200 - Nicotine dependence, unspecified, uncomplicated Status: Chronic Assessment and Plan: Nicotine patch ordered (5) Esophageal carcinoma: Code(s): C15.9 - Malignant neoplasm of esophagus, unspecified Status: Acute Assessment and Plan: Awaiting consult of Oncology, Dr. Kurtz. Pt was supposed to have an appointment with him earlier today, but did not make the appointment as she was in the ER. 12/29/23: Dr. Kurtz consulted and made recs. Gen sgy consulted to place port while here. Encouraged to eat as she can. Upcoming chemo to be started. (6) Anemia: Qualifiers: Anemia type: unspecified type Qualified Code(s): D64.9 - Anemia, unspecified Code(s): D64.9 - Anemia, unspecified Status: Acute Assessment and Plan: Pt to start iron infusions today as ordered by Dr. Kurtz for treatment of NURIS. Time Spent With Patient Time with patient: 25 - 35 minutes Subjective Date/time seen: 12/29/23 0840 Interval history: This very pleasant 63 year old female is examined at the bedside today in interval assessment since being admitted to the hospital. She has been consulted on by GI and has been started on Amitiza. Dr. Kurtz evaluated this AM and has asked Gen Sylvain to consult to place a port in preparation for chemotherapy. Pt continues to complain of nausea and does not feel well overall. She will also be started on IV iron for her NURIS. She has no other new complaints, specifically melena, hematochezia or hematemesis. She denies any CP, dyspnea. Review of Systems Review of Systems: All systems reviewed & are unremarkable except as noted in HPI and below Exam Narrative: CONSTITUTIONAL: Chronically ill appearing female pt sitting up at this time attempting to eat breakfast, but does not have an appetite. She appears to have a michael discoloration to her skin and is pale. She appears to be uncomfortable. HEENT: Head is atraumatic and normocephalic. Dry mucous membranes. Patent oropharynx. EYES: PERRLA NECK: FROM, supple active ROM, no JVD, no LN palpable RESPIRATORY: Decreased in all miller. CARDIO: RRR, S1 and S2 present without S3, S4, m,r,g,h GI: Abd is mildly TTP with BS present in all four quads. : Deferred SKIN: Pallor with some michael appe
[2023-12-29 14:00] VITALS: BP 104/78; PULSE 75; RESP 18; TEMP 36.3; O2SAT 90
[2023-12-29] MEDS: levoFLOXacin 750 MG/D5W 150 ML 750 MG/150 ML BAG 100 MG IVPB (15:32)
--- NOTE | 2023-12-29 17:05 | WPDGIPROGNO ---
Progress Note: A&P Assessment and Plan (1) Esophageal carcinoma: Code(s): C15.9 - Malignant neoplasm of esophagus, unspecified Status: Acute Assessment and Plan: oncology on board patient to get port-a-cath so hopefully can start treatment soon will follow as needed (2) Appetite loss: Code(s): R63.0 - Anorexia Status: Acute Assessment and Plan: eating but some discomfort due to large esophageal cancer (3) Chronic anemia: Code(s): D64.9 - Anemia, unspecified Status: Acute Assessment and Plan: probably mostly due to advanced malignancy (4) Retroperitoneal lymphadenopathy: Code(s): R59.0 - Localized enlarged lymph nodes Status: Acute Assessment and Plan: by oncology (5) Unintentional weight loss: Code(s): R63.4 - Abnormal weight loss Status: Inactive (6) Constipation due to opioid therapy: Code(s): K59.03 - Drug induced constipation; T40.2X5A - Adverse effect of other opioids, initial encounter Status: Acute Assessment and Plan: started amitiza, she is on narcotics miralax as needed Subjective Date/time seen: 12/29/23 17:05 Interval history: she is more comfortable today Review of Systems Review of Systems: All systems reviewed & are unremarkable except as noted in HPI and below Exam Const: General: comfortable and no acute distress HENMT: Face/Nose/Sinus: Normal nares present Eyes: General: appearance normal, both eyes and all related structures Neck: Neck: supple Resp: Auscultation: clear to auscultation bilaterally Cardio: Rate: regular rate Rhythm: regular rhythm GI: Inspection: non-distended GI Palp: Yes Soft to palpation and No Tenderness to palpation present (GI) Auscultation: normal bowel sounds Skin: General skin exam: normal color Neuro: Speech: normal speech Motor exam (neuro): 5/5 motor strength present throughout Extrem: General: normal to inspection Psych: Mental Status: mental status grossly normal Objective Data Vital Signs Vital Signs: Vital Signs - 24 hr 12/28/23 18:00 12/28/23 22:13 12/28/23 22:00 Temperature 97.0 F L Pulse Rate 65 Respiratory Rate 16 Blood Pressure 109/61 Pulse Oximetry 93 93 94 Oxygen Delivery Nasal Cannula Oxygen Flow Rate 2 2 Fraction of Inspired Oxygen 12/29/23 06:00 12/29/23 08:22 12/29/23 08:00 Temperature 97.7 F Pulse Rate 64 Respiratory Rate 16 Blood Pressure 103/60 Pulse Oximetry 93 93 Oxygen Delivery Nasal Cannula Room Air Oxygen Flow Rate 2 Fraction of Inspired Oxygen 28 12/29/23 14:00 Temperature 97.3 F L Pulse Rate 75 Respiratory Rate 18 Blood Pressure 104/78 Pulse Oximetry 90 Oxygen Delivery Oxygen Flow Rate Fraction of Inspired Oxygen Intake/Output Intake/Output: Intake & Output 12/26/23 12/27/23 12/28/23 12/29/23 23:59 23:59 23:59 23:59 Intake Total 760 2916.7 Balance 760 2916.7 Meds/Results Medications: Active Medications Generic Name Dose Route Start Last Admin Trade Name Freq PRN Reason Stop Dose Admin Hydrocodone Bitart/Acetaminophen 1 tab 12/28/23 13:24 12/29/23 15:36 Hydrocodone/Acetaminophen (*Crx) 10-325 Mg Tablet PO 1 tab Q4H PRN Administration Pain Rated 7-10 Fentanyl Citrate 25 mcg 12/29/23 16:08 Fentanyl Citrate Inj (*Crx) 100 Mcg/2 Ml Vial IV PUSH Q2M PRN Pain Sodium Chloride 1,000 mls @ 100 mls/hr 12/28/23 16:05 12/29/23 15:37 Normal Saline Iv IV CONT 100 mls/hr .Q10H MAINE Administration Metronidazole 500 mg in 100 mls @ 100 mls/hr 12/28/23 17:00 12/29/23 15:32 Flagyl 500 Mg/Iso Soln 100 Ml IVPB 100 mls/hr Q8H MAINE Administration Levofloxacin/Dextrose 750 mg in 150 mls @ 100 mls/hr 12/28/23 16:00 12/29/23 15:32 Levaquin 750 Mg/D5w 150 Ml IVPB 100 mls/hr Q24H MAINE Administration Lactated Ringer's 1,000 mls @ 30 mls/hr 12/29/23 16:10 Lr - Lactated Ringers I
--- NOTE | 2023-12-29 17:49 | PM.CNGS ---
Assessment and Plan Assessment and plan (1) Esophageal carcinoma: Code(s): C15.9 - Malignant neoplasm of esophagus, unspecified Status: Acute (2) Retroperitoneal lymphadenopathy: Code(s): R59.0 - Localized enlarged lymph nodes Status: Acute (3) Chronic anemia: Code(s): D64.9 - Anemia, unspecified Status: Acute (4) Tobacco dependence: Code(s): F17.200 - Nicotine dependence, unspecified, uncomplicated Status: Chronic Plan Patient has evidence of esophageal carcinoma with extensive metastases. She has seen Oncology and is wanting to proceed with chemotherapy. She will need port placement to have secure and long-term access for IV infusions. I have recommended proceeding with Port-A-Cath placement under IV sedation in the operating room. I discussed the procedure, risks, benefits, and alternatives. Questions were answered. Will plan to proceed with procedure tomorrow. History of Present Illness Consult details Consult date: 12/29/23 Reason for consult: other (Esophageal Cancer) Requesting physician: Rickie Kurtz MD Narrative: This is a 63-year-old woman who I am asked to see for esophageal cancer and need for Port-A-Cath placement. She had initially presented to the emergency department on 12/15/2023 with nausea, vomiting, and back pain. Workup at that time had shown extensive lymphadenopathy and esophagitis. She then subsequently underwent EGD on 12/17/2023which showed findings consistent with esophageal carcinoma. She was then sent home to the hospital in was going to follow up with Oncology but then was having worsening difficulties with swallowing and presented back to the emergency department on 12/27/2023. She now is in need of port placement so she can initiate chemotherapy soon. Review of Systems Review of Systems: All systems reviewed & are unremarkable except as noted in HPI and below Eyes: Eyes: Denies change in vision ENT: Denies hearing loss, Denies neck pain and Denies sore throat Cardiovascular: Cardiovascular: Denies chest pain and Denies dyspnea Respiratory: Respiratory: Denies cough, Denies dyspnea and Denies wheezing Genitourinary: Genitourinary: Denies hematuria and Denies dysuria Musculoskeletal: Musculoskeletal: Denies arthralgias, Denies joint swelling and Denies neck pain Allergic/Immunologic: Allergic/Immunologic: Denies wheezing PMFSH Past Medical History Medical History Chronic anemia Constipation due to opioid therapy Depression with anxiety Hyperlipidemia Hypertension Retroperitoneal lymphadenopathy Tobacco dependence Surgical History Surgical History History of surgical removal of ganglion cyst Left wrist. Family History Family History Unknown Hypertension Father Diabetes mellitus Mother Diabetes mellitus Kidney failure Sibling Diabetes mellitus Social History Social History Social History: Surrogate medical decision maker: Lavellsully Carter, spouse. Code status: Full code. Smoking packs per day: 0.75 Smoking cigarettes per day: 15.0 Years smoked: 40 Smoking pack-years: 30.00 Smoking status: Current every day smoker Alcohol intake: current Drinks per week: 5 Substance use type: does not use Do You Feel Safe in your Home?: Yes Lack of Transportation: No Lack of Food: Never True Current Housing: I Do Not Have Housing Concerned About Future Housing: No Difficulty Paying Gas/Electric Bills: No Difficulty Paying for Meds: No Currently Unemployed: No Education: High School Diploma/GED Difficulty w/ Childcare or Family Care: No Spiritual care concerns: No Meds Home Medications and Allergies Home Medications Medication Instructions Recorded Con
[2023-12-29 20:00] VITALS: BP 104/58; PULSE 66; RESP 17; TEMP 36.3; O2SAT 90
[2023-12-30] VITALS (11 sets, daily range): BP systolic 105–146; BP diastolic 49–69; PULSE 70–92; RESP 14–20; TEMP 36.2–36.8; O2SAT 91–97
[2023-12-30] MEDS: metroNIDAZOLE 500 MG/ISO 100ML 500 MG/100 ML BAG 100 MG IVPB ×3 (00:28→17:02)
[2023-12-30] MEDS: HYDROcodone/acetaminophen (*CRX) 10-325 MG TABLET 1 TAB PO ×4 (00:29→15:01)
[2023-12-30] MEDS: SODIUM CHLORIDE 0.9% IV 1,000 ML 100 ML IV CONT (04:51)
[2023-12-30 06:51] LABS: Basophils Percent Auto 0.5 % (0.2-1.2); Eosinophils Absolute Auto 0.3 K/mm3 (0-0.3); Eosinophils Percent Auto 3.7 % (0-4.4); Hematocrit 31.2 % (37.0-47.0); Hemoglobin 9.2 g/dL (12.0-15.0); Immature Granulocyte Absolute 0.03 K/mm3 (0.00-0.031); Immature Granulocyte Percent A 0.4 % (0-0.5); Lymphocytes Absolute Auto 0.52 K/mm3 (0.9-3.2); Lymphocytes Percent Auto 7.1 % (18.3-44.2); Mean Corpuscular HGB Conc 29.5 g/dl (32-36); Mean Corpuscular Hemoglobin 25.2 pg (26-34); Mean Corpuscular Volume 85.5 fl (80-100); Mean Platelet Volume 10.4 fl (7.4-10.4); Monocytes Absolute Auto 0.6 K/mm3 (0.1-0.6); Monocytes Percent Auto 8.6 % (2.6-8.5); Neutrophils Absolute Auto 5.8 K/mm3 (1.3-6.7); Neutrophils Percent Auto 79.7 % (45.5-73.1); Platelet Count Result 230 k/mm3 (150-375); Red Blood Count 3.65 M/mm3 (4.2-5.4); Red Cell Distribution Width 14.3 % (11.5-14.5); White Blood Count 7.3 K/mm3 (4.5-10.0)
[2023-12-30] MEDS: ONDANSETRON INJ 4 MG/2 ML VIAL IV PUSH ×2 (06:56→14:17)
[2023-12-30 07:04] LABS: Alanine Aminotransferase 7 U/L (6-35); Albumin Level 3.3 g/dL (3.5-5.1); Alkaline Phosphatase 96 U/L (38-126); Anion Gap 9 mmol/L (4-12); Aspartate Amino Transferase 31 U/L (14-36); Bilirubin,Total 0.3 mg/dL (0.2-1.3); Blood Urea Nitrogen 5 mg/dL (7-17); Calcium 8.7 mg/dL (8.4-10.2); Carbon Dioxide 23 mmol/L (22-30); Chloride 103 mmol/L (98-107); Estimated CRCL calculation 79 ml/min; Estimated Glomerular Filt Rate > 60; Glucose 101 mg/dL (65-110); Potassium 4.2 mmol/L (3.4-5.0); Sodium 135 mmol/L (137-145)
[2023-12-30] MEDS: PANTOPRAZOLE SODIUM IV 40 MG VIAL IV PUSH (08:41)
[2023-12-30] MEDS: LACTATED RINGERS 1,000 ML 30 ML IV CONT (12:15)
--- NOTE | 2023-12-30 12:49 | WPDHPUPDATE1 ---
History and Physical Update Update Date/Time: 12/30/23 12:49 History and Physical has been reviewed, including an updated exam of the patient. There are NO changes in the patient's condition. Risks, benefits, and alternatives have been discussed and questions answered. Patient agrees to proceed with procedure.
--- NOTE | 2023-12-30 13:06 | WPDANESEPPF ---
Anes - Initial Pre Proc Eval Procedure: Operation Date: 12/30/23 12:30 Proposed Procedures p Insertion Shiraz Cath - Lazaro Cardenas DO Date/Time: 12/30/23 13:06 Surgeon: JOHN Owen Pre Op Diagnosis: Colitis, GI bleed Patient Data Age: 63 Gender: F Height: 1.73 m Weight: 62.3 kg Last Vital Signs Temp 97.3 F L 12/30/23 12:50 Pulse 86 12/30/23 12:50 Resp 16 12/30/23 12:50 BP 108/69 12/30/23 12:50 Pulse Ox 93 12/30/23 12:50 O2 Del Method Nasal Cannula 12/30/23 12:50 O2 Flow Rate 2 12/30/23 12:50 FiO2 28 12/29/23 08:22 Allergies Allergy/AdvReac Type Severity Reaction Status Date / Time Penicillins Allergy Unknown Verified 12/28/23 02:35 sertraline [From Zoloft] Allergy Other Verified 12/28/23 02:35 Home Medications Medication Instructions Recorded Confirmed Type amlodipine 10 mg tablet 10 mg PO HS 12/13/23 12/28/23 History atorvastatin 10 mg tablet 10 mg PO HS 12/13/23 12/28/23 History losartan 100 mg tablet 100 mg PO DAILY 12/13/23 12/28/23 History cholecalciferol (vitamin D3) 25 25 mcg PO DAILY 12/15/23 12/28/23 History mcg (1,000 unit) chewable tablet (Vitamin D3) cyanocobalamin (vitamin B-12) 250 250 mcg PO DAILY 12/15/23 12/28/23 History mcg tablet (Vitamin B-12) [id number] 8 mg-folic 400 1 tablet PO DAILY 12/15/23 12/28/23 History mcg-K 50 mcg-lutein 300 mcg tablet (Cent[facility] Women 50 Plus) vitamin E 400 unit tablet 180 mg PO DAILY 12/15/23 12/28/23 History hydrocodone 5 mg-acetaminophen 325 1 tablet PO Q6H PRN Pain Rated 4-6 12/17/23 12/28/23 Rx mg tablet #40 tabs ondansetron 4 mg disintegrating 4 mg PO Q8H PRN nausea and 12/17/23 12/28/23 Rx tablet vomiting #20 tabs pantoprazole 40 mg tablet,delayed 40 mg PO QAM #30 tabs 12/17/23 12/28/23 Rx release (Protonix) Laboratory Tests 12/30/23 06:12 WBC 7.3 K/mm3 (4.5-10.0) RBC 3.65 L M/mm3 (4.2-5.4) Hgb 9.2 L g/dL (12.0-15.0) Hct 31.2 L % (37.0-47.0) MCV 85.5 fl (80-100) MCH 25.2 L pg (26-34) MCHC 29.5 L g/dl (32-36) RDW 14.3 % (11.5-14.5) Plt Count 230 k/mm3 (150-375) MPV 10.4 fl (7.4-10.4) Immature Gran % (Auto) 0.4 % (0-0.5) Neut % (Auto) 79.7 H % (45.5-73.1) Lymph % (Auto) 7.1 L % (18.3-44.2) [place] % (Auto) 8.6 H % (2.6-8.5) Eos % (Auto) 3.7 % (0-4.4) Baso % (Auto) 0.5 % (0.2-1.2) Lymph # (Auto) 0.52 L K/mm3 (0.9-3.2) [place] # (Auto) 0.6 K/mm3 (0.1-0.6) Eos # (Auto) 0.3 K/mm3 (0-0.3) Baso # (Auto) 0.0 K/mm3 (0.0-0.1) Abs Immat Gran (auto) 0.03 K/mm3 (0.00-0.031) Absolute Neuts (auto) 5.8 K/mm3 (1.3-6.7) Absolute Nucleated RBC 0.000 K/mm3 (0.0-0.012) Nucleated RBC % 0.0 % (0.0-0.2) Sodium 135 L mmol/L (137-145) Potassium 4.2 mmol/L (3.4-5.0) Chloride 103 mmol/L (98-107) Carbon Dioxide 23 mmol/L (22-30) Anion Gap 9 mmol/L (4-12) BUN 5 L mg/dL (7-17) Creatinine 0.60 L mg/dL (0.7-1.0) Estim Creat Clear Calc 79 ml/min Estimated GFR > 60 (59 - ) Glucose 101 mg/dL (65-110) Calcium 8.7 mg/dL (8.4-10.2) Total Bilirubin 0.3 mg/dL (0.2-1.3) AST 31 U/L (14-36) ALT 7 U/L (6-35) Alkaline Phosphatase 96 U/L (38-126) Total Protein 7.0 g/dL (6.3-8.2) Albumin 3.3 L g/dL (3.5-5.1) Patient hx anesthesia problems: none Family hx anesthesia problems: none Results Review: All pre-operative results and documents have been reviewed as part of the pre-operative evaluation. [facility] Past Medical History Medical History Chronic anemia Constipation due to opioid therapy Depression with anxiety Hyperlipidemia Hypertension Retroperitoneal lymphadenopathy Tobacco dependence Surgical History Surgical History Histo
[2023-12-30] MEDS: ceFAZolin 2 GM/D5W 50 ML 2 GM/50 ML BAG IVPB (13:29)
[2023-12-30] MEDS: LIDO 1%/EPINEPHRINE 1:100,000 50 ML VIAL 20 ML INFILTRATE (13:29)
[2023-12-30] MEDS: HEPARIN SODIUM, PORCINE 10,000 UNITS/10 ML VIAL 3000 UNITS IV PUSH (13:50)
[2023-12-30] MEDS: HEPARIN SODIUM 5,000 UNITS/ML VIAL 5000 UNITS SUB-Q (13:53)
--- NOTE | 2023-12-30 14:09 | W.PM.PROC2 ---
Procedure Note - Detailed Date of Procedure 12/30/23 Pre-op Diagnosis Esophageal carcinoma Post-op Diagnosis Same Procedure Performed Right Internal Jugular tunneled Port-a-Cath placement using ultrasound and fluoroscopic guidance Surgeon Lazaro Cardenas, DO Anesthesia MAC and Local (0.5% bupivicaine with epinephrine) Indications This is a 63-year-old woman who presented with a new finding of esophageal carcinoma with multiple locations of metastases. She has been seen by Oncology and Port-A-Cath placement was recommended to initiate chemotherapy. Findings SonoSite ultrasound was used to identify the right internal jugular vein this was visualized as a compressible vessel just lateral to the pulsatile right carotid artery. Ultrasound guidance was used for advancement of the 18 gauge introducer needle directly into the lumen. Dark nonpulsatile blood was aspirated. Fluoroscopy was then used to guide advancement of the guidewire followed by the dilator and sheath. The final fluoroscopic images demonstrated the catheter tip in the distal SVC and no kinks along its path. Description of Procedure Procedure as well as risks, benefits, and alternatives were discussed with patient. Written consent was obtained and placed in chart prior to procedure. Patient was brought back to surgical suite. Was placed supine on operating table. Time-out was done confirm patient procedure. IV sedation was then administered by the Anesthesia Department. The chest and neck area was prepped and draped in sterile fashion using chlorhexidine prep. Patient was placed in Trendelenburg position. SonoSite ultrasound was used to identify the right internal jugular vein. It was visualized as a compressible vessel just lateral to the carotid artery. 1% lidocaine with epinephrine was infiltrated directly over the vessel under ultrasound guidance. An 18 gauge introducer needle was then advanced under ultrasound guidance directly into the right internal jugular vein. Dark nonpulsatile blood was aspirated. A 0.035 in guidewire was then advanced through the needle under fluoroscopic guidance. The guidewire was visualized advancing all the way down into the superior vena cava. 1% lidocaine with epinephrine was then infiltrated on the right anterior chest and along the tract up to the guidewire insertion site. A 3 cm incision was made with a 15 blade scalpel, and electrocautery was then used for dissection down through the subcutaneous tissue to the pectoral fascia. A pocket was created just inferior to the incision using blunt dissection. A small navneet incision was then also made at the insertion site at the neck. The tunneler was then advanced from the chest incision up to the neck incision and the catheter tubing was brought up through this tract. The dilator and sheath were then advanced over the guidewire under fluoroscopic visualization. The dilator and guidewire were then removed leaving the sheath in place. The catheter tubing was then advanced through the sheath under fluoroscopic guidance. The sheath was unsnapped and carefully peeled away. The catheter tubing was released underneath the neck incision. Fluoroscopy was used to confirm proper placement of the catheter tubing and no kinks along its path. The catheter was then cut to proper length and secured to the port. The port was then accessed with a Hummel needle and aspirated and flushed with heparinized saline. The port function with ease. The port was then hep-locked with Hep-Lock solution. The port was then placed within the pocket that was created, and was secured to the fascia using 3 0 Prolene simple interrupted sutures. The patient was flattened out in bed. Otf's fascia was reapproximated using 3 0 Vicryl simple interrupted sutures. The skin of the incisions was then approximated using 4-0 Monocryl subcuticular suture. Exofin glue was then applied on top. The patient was then awakened from anesthesia and transfe
[2023-12-30] MEDS: levoFLOXacin 750 MG/D5W 150 ML 750 MG/150 ML BAG 100 MG IVPB (15:02)
--- NOTE | 2023-12-30 17:01 | P.DS_ITS ---
DS: Admitting Diagnosis Discharge Date 12/30/2023 Admitting Diagnosis Bright Red Blood per Rectum DS: Discharge Diagnosis Discharge Diagnosis (1) Colitis: Code(s): K52.9 - Noninfective gastroenteritis and colitis, unspecified Status: Acute Assessment and Plan: * Will be discharged on oral Levaquin and Flagyl. * Seen by GI and no further recs at this time other than to start Amitiza and monitor. * Soft diet with pudding thickened liquids ordered secondary to pt's dysphagia. * PRN pain meds and anti-emetics. * Continue protonix. * Continue supportive care, abx and monitor. (2) Acute GI bleeding: Code(s): K92.2 - Gastrointestinal hemorrhage, unspecified Status: Acute Assessment and Plan: * Seen by GI. Believe etiology is hemorrhoidal in nature. * Continue Protonix * Hgb stable and trending up. * No further complains of melanous stools or any hematochezia. (3) Dysphagia: Qualifiers: Dysphagia type: other dysphagia Qualified Code(s): R13.19 - Other dysphagia Code(s): R13.10 - Dysphagia, unspecified Status: Acute Assessment and Plan: * Secondary to pts Esophageal CA. * She tolerates at baseline pudding thickened liquids. * Soft diet with pudding thickened liquids ordered. * Continue soft diet with pudding thickened liquids. (4) Tobacco dependence: Code(s): F17.200 - Nicotine dependence, unspecified, uncomplicated Status: Chronic Assessment and Plan: * Nicotine patch ordered - Encouraged with cessation. (5) Esophageal carcinoma: Code(s): C15.9 - Malignant neoplasm of esophagus, unspecified Status: Acute Assessment and Plan: * Sen by Oncologist Dr. Kurtz inpatient. * [facility] and pt cleared for discharge per general surgery post procedure. * Encouraged to eat as she can. * Upcoming chemo to be started. (6) Anemia: Qualifiers: Anemia type: unspecified type Qualified Code(s): D64.9 - Anemia, unspecified Code(s): D64.9 - Anemia, unspecified Status: Acute Assessment and Plan: * Pt to start iron infusions today as ordered by Dr. Kurtz for treatment of NURIS. * Hgb stable at discharge. Plan Patient cleared for discharge per general surgery DS: Summary Hospital Course Reason for hospitalization: Bright red blood per rectum. Hospital Course: Patient with moderately well differentiated esophageal adenocarcinoma status post EGD and biopsy done on December 16 that showed malignant appearing lower esophageal mass. Low probability of MSI high. CT scan chest abdomen pelvis showed lower neck lymphadenopathy, 2.3 x 1.2 cm right upper lobe pleural based mass, mediastinal and hilar lymphadenopathy, hepatosplenomegaly and 8 mm liver lobe and 9 mm right adrenal lesion with mesenteric and retroperitoneal lymph. Patient came into the hospital with bright red blood rectum and constipation. Symptoms were suspected to be secondary to metastatic disease. Patient had general surgery place [facility] in preparation for chemotherapy to be started as an outpatient. She had Iron deficiency anemia and was started on IV iron infusion and will continue oral iron supplement upon discharge. She also had partial small-bowel obstruction suspected to be secondary to narcotics use and was seen by GI consultation noted and started on Amitiza and MiraLax. Patient is medically stable for discharge and has been cleared by all the consultants involved in her care. Status at Discharge
--- NOTE | 2023-12-30 17:01 | PM.DS ---
DS: Admitting Diagnosis Discharge Date 12/30/2023 Admitting Diagnosis Bright Red Blood per Rectum DS: Discharge Diagnosis Discharge Diagnosis (1) Colitis: Code(s): K52.9 - Noninfective gastroenteritis and colitis, unspecified Status: Acute Assessment and Plan: Will be discharged on oral Levaquin and Flagyl. Seen by GI and no further recs at this time other than to start Amitiza and monitor. Soft diet with pudding thickened liquids ordered secondary to pt's dysphagia. PRN pain meds and anti-emetics. Continue protonix. Continue supportive care, abx and monitor. (2) Acute GI bleeding: Code(s): K92.2 - Gastrointestinal hemorrhage, unspecified Status: Acute Assessment and Plan: Seen by GI. Believe etiology is hemorrhoidal in nature. Continue Protonix Hgb stable and trending up. No further complains of melanous stools or any hematochezia. (3) Dysphagia: Qualifiers: Dysphagia type: other dysphagia Qualified Code(s): R13.19 - Other dysphagia Code(s): R13.10 - Dysphagia, unspecified Status: Acute Assessment and Plan: Secondary to pts Esophageal CA. She tolerates at baseline pudding thickened liquids. Soft diet with pudding thickened liquids ordered. Continue soft diet with pudding thickened liquids. (4) Tobacco dependence: Code(s): F17.200 - Nicotine dependence, unspecified, uncomplicated Status: Chronic Assessment and Plan: Nicotine patch ordered - Encouraged with cessation. (5) Esophageal carcinoma: Code(s): C15.9 - Malignant neoplasm of esophagus, unspecified Status: Acute Assessment and Plan: Sen by Oncologist Dr. Kurtz inpatient. Port-[facility]-cath placed by [facility] prior to discharge and pt cleared for discharge per general surgery post procedure. Encouraged to eat as she can. Upcoming chemo to be started. (6) Anemia: Qualifiers: Anemia type: unspecified type Qualified Code(s): D64.9 - Anemia, unspecified Code(s): D64.9 - Anemia, unspecified Status: Acute Assessment and Plan: Pt to start iron infusions today as ordered by Dr. Kurtz for treatment of NURIS. Hgb stable at discharge. Plan Patient cleared for discharge per general surgery DS: Summary Hospital Course Reason for hospitalization: Bright red blood per rectum. Hospital Course: Patient with moderately well differentiated esophageal adenocarcinoma status post EGD and biopsy done on December 16 that showed malignant appearing lower esophageal mass. Low probability of MSI high. CT scan chest abdomen pelvis showed lower neck lymphadenopathy, 2.3 x 1.2 cm right upper lobe pleural based mass, mediastinal and hilar lymphadenopathy, hepatosplenomegaly and 8 mm liver lobe and 9 mm right adrenal lesion with mesenteric and retroperitoneal lymph. Patient came into the hospital with bright red blood rectum and constipation. Symptoms were suspected to be secondary to metastatic disease. Patient had general surgery place [facility] in preparation for chemotherapy to be started as an outpatient. She had Iron deficiency anemia and was started on IV iron infusion and will continue oral iron supplement upon discharge. She also had partial small-bowel obstruction suspected to be secondary to narcotics use and was seen by GI consultation noted and started on Amitiza and MiraLax. Patient is medically stable for discharge and has been cleared by all the consultants involved in her care. Status at Discharge Functional status at discharge: independent ambulation Overall status at discharge: patient is progressing back to baseline Time Spent with Patient Time attestation: Total time spent providing and/or coordinating discharge services: Time spent: Greater than 30 minutes Exam Narrative: CONSTITUTIONAL: Chronically ill appearing female, not in acute distress. HEENT: Head is atraumatic and normocephalic
[2023-12-30] MEDS: LUBIPROSTONE 8 MCG CAPSULE 24 MCG PO (17:02)
== END 2023-12-30 18:05 | disposition home or self-care (01) | DRG 254 ==
LOC: ANHED 12-28 01:37 → ANH3MEDSUR 12-28 02:34 → ANHIMU 12-28 07:05 → ANH3MEDSUR 12-28 15:13
PROVIDERS: Emergency Medicine; Nurse Practitioner Adult Health; Surgery; Admitting Provider Internal Medicine; Emergency Provider Physician Assistant; PCP Physician Assistant; Visit Provider Nurse Practitioner Adult Health
PROC: 02HV33Z Insertion of Infusion Device into Superior Vena Cava, Percutaneous Approach (ICD-10-PCS; principal; 2023-12-30 12:30)
DX: K64.8 Other hemorrhoids (principal); K52.9 Noninfective gastroenteritis and colitis, unspecified; K62.5 Hemorrhage of anus and rectum; C15.9 Malignant neoplasm of esophagus, unspecified; C79.9 Secondary malignant neoplasm of unspecified site; E44.0 Moderate protein-calorie malnutrition; R13.19 Other dysphagia; D50.9 Iron deficiency anemia, unspecified; D63.8 Anemia in other chronic diseases classified elsewhere; E78.5 Hyperlipidemia, unspecified; F41.8 Other specified anxiety disorders; F17.210 Nicotine dependence, cigarettes, uncomplicated; I10 Essential (primary) hypertension; K56.609 Unspecified intestinal obstruction, unspecified as to partial versus complete obstruction; K59.00 Constipation, unspecified; K59.03 Drug induced constipation; R59.1 Generalized enlarged lymph nodes; R16.2 Hepatomegaly with splenomegaly, not elsewhere classified; T40.2X5A Adverse effect of other opioids, initial encounter; Z68.20 Body mass index [BMI] 20.0-20.9, adult; Z88.0 Allergy status to penicillin
CPT/HCPCS: 36415; 74177; 77001; 80053; 81003; 83605; 83690; 83735; 85014; 85018; 85025; 85610; 85730; 86850; 86900; 86901; 87040; 96365; 96375; 99285; A9270; C1788; G0378; J0690; J0692; J1100; J1644; J1756; J1836; J1956; J2250; J2405; J2470; J2704; J3010; J3360; J7030; J7050; J7120; Q9967

== ENCOUNTER 2024-01-06 06:33 | Emergency (ER) | payer OTHER, SELFPAY ==
[2024-01-06] VITALS (23 sets, daily range): BP systolic 96–123; BP diastolic 74–86; PULSE 70–103; RESP 14–34; TEMP 36.6–37.1; O2SAT 86–96
--- NOTE | ~2024-01-06 | XR_ITS ---
XR chest 1V portable 01/06/2024 12:25 Indication: Hypoxia Procedure: AP portable chest Comparison: 12/30/2023 Findings: There is bilateral asymmetric airspace disease, right greater than left. Portacatheter tip in the SVC. Borderline heart size. No significant pleural effusion or pneumothorax. Impression: 1: Stable bilateral diffuse airspace disease, right greater than left, most likely edema. Pneumonia l ess favored. Reviewed, dictated and finalized at location B. Impression: 1: Stable bilateral diffuse airspace disease, right greater than left, most lik meagan edema. Pneumonia less favored.
[2024-01-06] MEDS: METHYLNALTREXONE 12 MG/0.6 ML VIAL SUB-Q (08:27)
[2024-01-06] MEDS: BISACODYL 10 MG SUPPOSITORY RECTAL (08:38)
--- NOTE | 2024-01-06 08:59 | ED.ABDPAIN ---
HPI - Abdominal Pain General Chief Complaint: Abdominal Pain Stated Complaint: constipation Time Seen by Provider: 01/06/24 06:58 History of Present Illness HPI narrative: Patient had taken some prescribed narcotics for esophageal cancer, and then over last few days has had such bad constipation and pain from the constipation that she came in to try a to see if we can get it out. Related Data Home Medications Medication Instructions Recorded Confirmed amlodipine 10 mg tablet 10 mg PO HS 12/13/23 12/28/23 atorvastatin 10 mg tablet 10 mg PO HS 12/13/23 12/28/23 losartan 100 mg tablet 100 mg PO DAILY 12/13/23 12/28/23 cholecalciferol (vitamin D3) 25 25 mcg PO DAILY 12/15/23 12/28/23 mcg (1,000 unit) chewable tablet (Vitamin D3) cyanocobalamin (vitamin B-12) 250 250 mcg PO DAILY 12/15/23 12/28/23 mcg tablet (Vitamin B-12) ytsemhqz-[id number] 8 mg-folic 400 1 tablet PO DAILY 12/15/23 12/28/23 mcg-K 50 mcg-lutein 300 mcg tablet ([employer] [facility] 50 Plus) vitamin E 400 unit tablet 180 mg PO DAILY 12/15/23 12/28/23 Allergies Allergy/AdvReac Type Severity Reaction Status Date / Time Penicillins Allergy Unknown Verified 12/28/23 02:35 sertraline [From Zoloft] Allergy Other Verified 12/28/23 02:35 [facility] Past Medical History Medical History Chronic anemia Constipation due to opioid therapy Depression with anxiety Hyperlipidemia Hypertension Retroperitoneal lymphadenopathy Tobacco dependence Surgical History Surgical History History of surgical removal of ganglion cyst Left wrist. Family History Family History Unknown Hypertension Father Diabetes mellitus Mother Diabetes mellitus Kidney failure Sibling Diabetes mellitus Social History Social History Social History: Surrogate medical decision maker: Lavell Carter, spouse. Code status: Full code. Smoking packs per day: 0.75 Smoking cigarettes per day: 15.0 Years smoked: 40 Smoking pack-years: 30.00 Smoking status: Current every day smoker Alcohol intake: current Drinks per week: 5 Substance use type: does not use Do You Feel Safe in your Home?: Yes Lack of Transportation: No Lack of Food: Never True Current Housing: I Do Not Have Housing Concerned About Future Housing: No Difficulty Paying Gas/Electric Bills: No Difficulty Paying for Meds: No Currently Unemployed: No Education: High School Diploma/GED Difficulty w/ Childcare or Family Care: No Spiritual care concerns: No Procedures Rectal Disimpaction Rectal Disimpaction #1: Rectal Disimpaction Date: 01/06/24 Indication: fecal impaction Sedation/Analgesia: none Technique: manual disimpaction with gloved finger Result: significant stool output (Small amount of stool however patient unable to tolerate due to pain) Complications: pain and unable to tolerate Rectal Disimpaction #2: Rectal Disimpaction Date: 01/06/24 Indication: fecal impaction Sedation/Analgesia: benzodiazepines Technique: manual disimpaction with gloved finger Result: significant stool output Patient Tolerated Procedure: well Course Vital Signs Vital signs: Vital Signs Pulse Rate 88 01/06/24 06:43 Respiratory Rate 27 H 01/06/24 06:43 Temperature 98.7 F 01/06/24 14:21 Pulse Rate 70 01/06/24 14:21 Respiratory Rate 18 01/06/24 14:21 Blood Pressure 123/79 01/06/24 14:21 Pulse Oximetry 92 01/06/24 14:21 Oxygen Delivery Nasal Cannula 01/06/24 06:50 Oxygen Flow Rate 2 01/06/24 06:50 MDM - Abdominal Pain MDM Narrative Medical decision making narrative: Patient presenting with bad constipation. She does have history of esophagea
[2024-01-06] MEDS: diazePAM INJ (*CRX) 10 MG/2 ML SYRINGE 5 MG IM (09:10)
--- NOTE | 2024-01-06 12:17 | PC.NURSE ---
pt reports she does not wear oxygen at home. placed pt on room air and pt sating 87%. placed pt back on 2L nasal cannula. pt sating 93% on 2L. pt stating to this RN that she does not want to admitted to the hospital and needs to go to her chemo treatment tomorrow. Dr. Molina made aware of situation. order put in for home oxygen evaluation. called ED respiratory to make them aware. states they will be down shortly. pt and family comfortable with plan.
--- NOTE | 2024-01-06 14:32 | HOMEO2EVAL ---
Evaluation was performed at [facility] Home Oxygen Evaluation RC: Home Oxygen (O2) Evaluation Start: 01/06/24 11:55 Freq: STAT Status: Active Protocol: RPE Activity Type Activity Date Activity User E-sign Co-sign Detail Recorded Client Recorded Date Recorded By Document 01/06/24 13:40 DJO [email or web address] 01/06/24 14:32 DJO Document 01/06/24 13:45 [email or web address] [email or web address] 01/06/24 14:32 DJO Document 01/06/24 13:50 [email or web address] [email or web address] 01/06/24 14:32 DJO Document 01/06/24 13:55 [email or web address] [email or web address] 01/06/24 14:32 DJO Document 01/06/24 14:00 [email or web address] [email or web address] 01/06/24 14:32 DJO Document 01/06/24 14:15 [email or web address] [email or web address] 01/06/24 14:32 DJO 01/06/24 01/06/24 01/06/24 13:40 13:45 13:50 Home O2 Evaluation [Oxygen] -Test Phase Resting Resting Resting -Oxygen Delivery Room Air Nasal Cannula Nasal Cannula -Oxygen Flow Rate (L/min) 1 2 [Pulse Oximetry] -Pulse Oximetry (90-100 %) 86 L 88 L 90 [Pulse Rate] -Pulse Rate (60-100 beats/min) 81 83 83 [Evaluation] -Activity Tolerance [Charges] -Evaluation Charges O2 Evaluation by Pulmonary 01/06/24 01/06/24 01/06/24 13:55 14:00 14:15 Home O2 Evaluation [Oxygen] -Test Phase Exercise Exercise Resting -Oxygen Delivery Nasal Cannula Nasal Cannula Nasal Cannula -Oxygen Flow Rate (L/min) 2 3 2 [Pulse Oximetry] -Pulse Oximetry (90-100 %) 88 L 90 90 [Pulse Rate] -Pulse Rate (60-100 beats/min) 99 103 H 85 [Evaluation] -Activity Tolerance Good [Charges] -Evaluation Charges
== END 2024-01-06 14:45 | disposition home or self-care (01) ==
PROVIDERS: Emergency Provider Emergency Medicine; PCP Physician Assistant
DX: K59.00 Constipation, unspecified (principal); R09.02 Hypoxemia; C15.9 Malignant neoplasm of esophagus, unspecified; Z79.891 Long term (current) use of opiate analgesic; F41.8 Other specified anxiety disorders; E78.5 Hyperlipidemia, unspecified; I10 Essential (primary) hypertension; D64.9 Anemia, unspecified; F17.210 Nicotine dependence, cigarettes, uncomplicated
CPT/HCPCS: 71045; 96372; 99284; A9270; J2212; J3360